=== PATIENT | male | born 1985 | race Caucasian/White ===

== ENCOUNTER 2023-10-17 09:49 | Emergency (ER) | payer OTHER, SELFPAY ==
[2023-10-17 09:53] VITALS: BP 149/79; PULSE 73; RESP 18; TEMP 36.6; O2SAT 98; BMI 27.3
--- OUTSIDE RECORDS SUMMARY | 2023-10-17 11:02 | XMS_ITS | Clinical Summary ---
Author Organization [facility] Address [address] [place] [address] Care Team Providers Care Blender/Braze Applicator Name Role Phone Nestor Duenas MD Primary Care Provider +1- [phone] Source Comments You are receiving this document as you are listed as the primary care provider,follow-up provider, or the patient has been referred to you for consultation.This is in compliance with the Medicare and[facility],which states Providers who transition their patient to another setting of careor provider of care or refers their patient to another provider of care shouldprovide summary care record for each transition of care or referral. [email or web address] Allergies No known active allergies Medications Medication Sig Dispensed Refills Start Date End Date Status amphetamine-dextroam phetamine XR (ADDERALL XR) 20 MG 24 hour release capsule Take 1 Capsule (20 mg) by mouth two times a day. 60 Capsule 08/09/2021 Active amphetamine-dextroam phetamine XR (ADDERALL XR) 20 MG 24 hour release capsule Take 1 Capsule (20 mg) by mouth two times a day. 60 Capsule 09/09/2021 Active amphetamine-dextroam phetamine XR (ADDERALL XR) 20 MG 24 hour release capsule Take 1 Capsule (20 mg) by mouth two times a day. 60 Capsule 10/10/2021 Active Active Problems Problem Noted Date Diagnosed Date Tobacco abuse 10/01/2015 Controlled substance agreement signed 04/13/2015 Overview: Diagnosis: ADHD Medication: Adderall XR 20mg bid Controlled Substance Agreement reviewed and signed: yes Date agreement signed: 04/13/2015 Refill plan: 3 rx's q 3 mo and f/u due q 6 mo Clinician: Nestor Duenas MD Anxiety 08/19/2014 Attention deficit hyperactiv ity disorder (ADHD), predominantly inattentive type 08/19/2014 Overview: seen last 10/01/15- 3 rx's for Adderall XR 20 mg bid #60 given- f/u due 04/02/16 Obesity 05/29/2013 Immunizations Name Administration Dates Next Due Influenza IIV4 (Quadrivalent ) 0.5mL (48293) 05/07/2019,04/10/2017,04/11/2016, 015,05/29/2013 PPSV23 (Pneumovax) 04/10/2017 TDAP (ADACEL) 11/24/2010 Tdap 12/04/2014 Family History Medical History Relation Name Comments Coronary Artery Disease Father High Cholesterol Father Hypertension Father Cancer, Thyroid Mother Diabetes Paternal Grandfather Diabetes Paternal Grandmother Stroke Negative Family History Relation Name Status Comments Father Mother Paternal Grandfather Paternal Grandmother Social History Tobacco Use Types Packs/Day Years Used Date Smoking Tobacco: Every Day Cigarettes 0.5 10 Smokeless Tobacco: Never Alcohol Use Standard Drinks/Week Comments Yes 0 (1 standard drink = 0.6 oz pur e alcohol) Occasional PHQ-2 Answer Date Recorded PHQ-2 Score 0 01/19/2021 Sex and Gender Information Value Date Recorded Sex Assigned at Not on file Gender Identity Not on file Sexual Orientation Not on file Last Filed Vital Signs Vital Sign Reading Time Taken Comments Blood Pressure 141/87 06/08/2021 12:05 PM CDT Pulse 86 06/08/2021 12:05 PM CDT Temperature 37.2 ??C (99 ??F) 09/21/2013 3:11 PM CDT Respiratory Rate 20 09/21/2013 3:11 PM CDT Oxygen Saturation 99% 03/01/2010 1:52 PM CLINICAL LAW PROFESSOR Inhaled Oxygen Concentration - - Weight 88.5 kg (195 lb) 06/08/2021 11:54 AM CDT Height 180.3 cm (5' 11) 06/08/2021 11:54 AM CDT Body Mass Index 27.2 06/08/2021 11:54 AM CDT Plan of Treatment Health Maintenance Due Date Last Done Comments Hep C Screening (Preventive Services) 1987 HIV Screening (Preventive Services) 2003 HepB (1) 07/01/2006 Pneumococcal (2 - PCV) 04/10/2018 04/10/2017 Cholesterol 07/01/2022 05/29/2013 COVID-19 Vaccine (1 - 2022-24 season) 2022 Adult Preventive Visit 06/09/2023 06/08/2021 (Comple louise) Influenza (#1) 2023 05/07/2019, 03/26, 04/11/2016, Additional history exists DTaP/Tdap/Td (3 - Tdap) 12/04/2024 12/04/2014, 11/24 Zoster/Shingles (1 of 2) 07/01/2037 HPV Vaccine Aged Out No longer eligi ble based on patient's age to complete this topic HepA Aged Out No longer eligi ble based on patient's age to complete this topic Hib Aged Out No longer eligi ble based on patient's age to complete this topic IPV (Polio) Aged Out No longer eligi ble based on patient's age to complete this topic MCV4 Aged Out No longer eligi ble based on patient's age to complete this topic Procedures Procedure Name Priority Date/Time Associated Diagnosis Comments LIPID PANEL & DIRECT LDL (IF NEEDED) Routine 05/29/2013 10:07 AM CLINICAL LAW PROFESSOR Screening cholesterol level from Last 3 Months or Most Recently Relevant to Health Maintenance Results * (ABNORMAL) Lipid Panel and Direct LDL(If Needed) (05/29/2013 10:07 AM CLINICAL LAW PROFESSOR) Cholesterol 203(H) 0 - 200 mg/dL HP CONVERSION Triglycerides 254(H) 0 - 149 mg/dL HP CONVERSION HDL Cholesterol 31(L) >39 mg/dL HP CONVERSION Cholesterol/HDL Ratio Screen 6.5 HP CONVERSION LDL Calculated 121 19 - 130 mg/dL HP CONVERSION Hours Fasting 12.0 HP CONVERSION 05/29/2013 10:0 7 AM CLINICAL LAW PROFESSOR 05/29/2013 10:07 AM CLINICAL LAW PROFESSOR Narrative HP CONVERSION - 05/29/2013 10:39 AM CLINICAL LAW PROFESSOR Performed at [facility], [address] [place] [address] Nelly Gillespie PA-C LAB_1 HP CONVERSION from Last 3 Months or Most Recently Relevant to Health Maintenance Care Teams Blender/Braze Applicator Relationship Specialty Start Date End Date Nestor Duenas MD [address] [place] [address] PCP - General 08/27/14
--- NOTE | 2023-10-17 11:07 | ED_ITS ---
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 No loss of consciousness, denies any ocular injuries or complaints. Tetanus is up-to-date. Laceration is across the left upper cheek. Related Data Previous Rx's ?Medication ?Instructions ?Recorded dextroamphetamine-amphetamine ER 20 mg PO BID #60 caps 04/24/22 20 mg 24hr capsule,extend release (Adderall XR) dextroamphetamine-amphetamine ER 20 mg (2 x 10 mg) PO BID #120 caps 07/11/23 10 mg 24hr capsule,extend release (Adderall XR) dextroamphetamine-amphetamine ER 20 mg PO BID #60 caps 10/08/23 20 mg 24hr capsule,extend release (Adderall XR) Allergies Allergy/AdvReac Type Severity Reaction Status Date / Time No Known Allergies Allergy Unknown Verified 10/09/23 13:28 [facility] Medical History (Updated 10/17/23 @ 11:04 by Rhonda Chen MD) Olecranon bursitis ?M70.20 - Olecranon bursitis, unspecified elbow (ICD-10) Elevated blood pressure reading without diagnosis of hypertension ?R03.0 - Elevated blood-pressure reading, without diagnosis of hypertension (ICD-10) Cellulitis ?L03.90 - Cellulitis, unspecified (ICD-10) ADD (attention deficit disorder) ?F98.8 - Other specified behavioral and emotional disorders with onset usually occurring in childhood and adolescence (ICD-10) Surgical History (Updated 11/23/21 @ 08:46 by Sade Glass) Hx of vasectomy (07/04/21) ?Z98.52 - Vasectomy status (ICD-10) Social History Smoking Status: Current every day smoker Do you use any of these nicotine containing products: None How often do you have a drink containing alcohol: never How often do you have six or more drinks on one occasion: Never AUDIT-C Alcohol total score: 0 Non-prescribed substance use: denies use Little interest or pleasure in doing things: not at all Feeling down, depressed, or hopeless: not at all Exam Narrative: Exam Narrative: Vital signs reviewed In general, alert, well-appearing man. Head: Normocephalic. Eyes: Pupils are equal and reactive. Extraocular movements are full. No nystagmus, no diplopia. ENT: There is a 2 in laceration across the left cheek under the left eye. This is somewhat Y shaped. Bleeding is controlled. He has intact sensation throughout the cheek although he noted some paresthesias under the eye and to a lesser extent underneath the laceration. Lid is normal. No facial bony tenderness or deformity. Const: Vital Signs, click to edit/add: Vital Signs - 24 hr 10/17/23 09:53 Temperature 97.9 F Pulse Rate [Right Pulse Oximeter] 73 Respiratory Rate 18 Blood Pressure [Ri ght Upper Arm] 149/79 H Pulse Oximetry 98 Oxygen Delivery Me thod Room Air Documenting provider has reviewed patient's vital signs: yes Course Course ED Course: Procedure note: The wound was anesthetized using lidocaine with epinephrine, cleaned and explored. No evidence of foreign body or obvious injury to deeper structures although the laceration overlies the region of the infraorbital nerve. At this time he does not have any dense sensory loss. I used [address] 3 deep simple interrupted sutures to bring the edges together and decrease tension across the wound. I then placed a total of 10 simple interrupted superficial sutures using 6 0 nylon. He tolerated this well, no immediate complication. Recommend routine wound care, suture removal next week, he has an appointment 1 week from today which I think is okay, but stressed that he should not wait any longer than 1 week for suture removal. Return at any time for signs of infection. Recommended that he keep an ointment such as Vaseline or Aquaphor on this as it heals, discussed sunscreen for the next 6 months to help with scar appearance. Vital Signs Vital signs: Initial Vital Signs Temperature 97.9 F 10/17/23 09:53 Temperature Source Temporal Artery Scan 10/17/23 09:53 Pulse Rate 73 10/17/23 09:53 Pulse Rhythm Regular 10/17/23 09:53 Pulse Strength 3+ Normal 10/17/23 09:53 Respiratory Rate 18 10/17/23 09:53 Blood Pressure 149/79 H 10/17/23 09:53 Blood Pressure Mean 102 10/17/23 09:53 Blood Pressure Position Sitting 10/17/23 09:53 Pulse Oximetry 98 10/17/23 09:53 Oxygen Delivery Method Room Air 10/17/23 09:53 Vital Signs Temperature 97.9 F 10/17/23 09:53 Pulse Rate 73 10/17/23 09:53 Respiratory Rate 18 10/17/23 09:53 Blood Pressure 149/79 H 10/17/23 09:53 Pulse Oximetry 98 10/17/23 09:53 Oxygen Delivery Method Room Air 10/17/23 09:53 Temperature 97.9 F 10/17/23 09:53 Pulse Rate 73 10/17/23 09:53 Respiratory Rate 18 10/17/23 09:53 Blood Pressure 149/79 H 10/17/23 09:53 Pulse Oximetry 98 10/17/23 09:53 Oxygen Delivery Method Room Air 10/17/23 09:53 Medications Administered Medications: Discontinued Medications Generic Name Dose Route Start Last Admin Trade Name Shubham PRN Reason Stop Dose Admin Lidocaine/Epinephrine 5 ml 10/17/23 10:20 10/17/23 10:23 Lidocaine 1%-Epi 1:100,000 10 Ml INFILTRATI 10/17/23 10:21 5 ml ONCE ONE Administration Discharge Plan Discharge Clinical Impression: Facial laceration Patient Disposition: Home, Self-Care Condition: Improved Instructions: Laceration (DC) Additional Instructions: Keep an ointment such as Aquaphor or Vaseline on the wound over the next week while it heals. This will help with healing and make suture removal easier. If at any time you develop symptoms of infections such as increasing pain, redness, swelling or drainage, you should be seen again. Sutures should be taken out your visit next week. Do not wait any longer than 1 week as this can lead to scarring from the stitches themselves. Okay to bathe or shower, please avoid swimming for 72 hours. Prescriptions: No Action dextroamphetamine-amphetamine [Adderall XR] 20 mg capsule,extended release 24hr 20 mg PO BID Qty: 60 0RF dextroamphetamine-amphetamine [Adderall XR] 10 mg capsule,extended release 2 4hr 20 mg PO BID Qty: 120 0RF dextroamphetamine-amphetamine [Adderall XR] 20 mg capsule,extended release 24hr 20 mg PO BID Qty: 60 0RF Rx Instructions: Follow-up due Oct 2023. Follow Up/Referrals: James Polk MD [Primary Care Provider] - Stand Alone Forms: [employer] Info Instructions
== END 2023-10-17 11:12 | disposition home or self-care (01) ==
PROVIDERS: Emergency Provider Emergency Medicine; PCP Family Medicine
DX: S01.412A Laceration without foreign body of left cheek and temporomandibular area, initial encounter (principal); W45.8XXA Other foreign body or object entering through skin, initial encounter; Y93.89 Activity, other specified; Y92.79 Other farm location as the place of occurrence of the external cause
CPT/HCPCS: 12021; 12051; 99283; 99284

== ENCOUNTER 2023-11-04 09:29 | Emergency (ER) | payer OTHER, SELFPAY ==
[2023-11-04 09:36] VITALS: BP 124/80; PULSE 102; RESP 16; TEMP 36.8; O2SAT 98; BMI 27.3
--- NOTE | 2023-11-04 09:51 | ED.LOWEXIN ---
HPI - Extremity Injury (Lower) General Chief Complaint: Extremity Pain/Injury, Lower Stated Complaint: R knee possible infection Time Seen by Provider: 11/04/23 09:43 History of Present Illness HPI Narrative: Patient is a 38-year-old gentleman who I know from my primary care clinic. I did treat him for olecranon bursitis which was infected approximately a month ago and he has had full resolution. Patient presents with painful red is swelling of the right knee which is been present for 24 hours. Patient has no fever no signs of sepsis. He has had no chest pain no shortness a breath orthopnea no PND. No calf pain. The pain is in the superior aspect of the knee and is accompanied by induration and swelling. He has had no recent injuries. Related Data Previous Rx's ?Medication ?Instructions ?Recorded dextroamphetamine-amphetamine ER 20 mg PO BID #60 caps 04/24/22 20 mg 24hr capsule,extend release (Adderall XR) dextroamphetamine-amphetamine ER 20 mg (2 x 10 mg) PO BID #120 caps 07/11/23 10 mg 24hr capsule,extend release (Adderall XR) dextroamphetamine-amphetamine ER 20 mg PO BID #60 caps 10/08/23 20 mg 24hr capsule,extend release (Adderall XR) Allergies Allergy/AdvReac Type Severity Reaction Status Date / Time No Known Allergies Allergy Unknown Verified 10/24/23 09:50 Review of Systems Status of ROS: Reports: 10 or more systems reviewed and unremarkable except as noted in History and below [facility] Medical History Olecranon bursitis ?M70.20 - Olecranon bursitis, unspecified elbow (ICD-10) Elevated blood pressure reading without diagnosis of hypertension ?R03.0 - Elevated blood-pressure reading, without diagnosis of hypertension (ICD-10) Cellulitis ?L03.90 - Cellulitis, unspecified (ICD-10) ADD (attention deficit disorder) ?F98.8 - Other specified behavioral and emotional disorders with onset usually occurring in childhood and adolescence (ICD-10) Surgical History Hx of vasectomy (07/04/21) ?Z98.52 - Vasectomy status (ICD-10) Social History Smoking Status: Current every day smoker Do you use any of these nicotine containing products: None How often do you have a drink containing alcohol: never How often do you have six or more drinks on one occasion: Never AUDIT-C Alcohol total score: 0 Non-prescribed substance use: denies use Little interest or pleasure in doing things: not at all Feeling down, depressed, or hopeless: not at all Exam Narrative: Exam Narrative: EXAM GENERAL: Patient appears comfortable and well. EYES: No scleral icterus. LYMPH: No supraclavicular or cervical lymphadenopathy. SKIN: Visible skin seen during exam normal or with benign process only. EXT: Evidence of of bursitis of the right knee noted with induration and swelling impaired range of motion. HEART: Regular rate and rhythm with no murmurs, rubs, or gallops. LUNGS: Clear to auscultation bilaterally with no crackles or wheezes. ABD: Soft, non tender, non distended. PSYCH: Good eye contact, speech is not pressured. Const: Vital Signs, click to edit/add: Vital Signs - 24 hr 11/04/23 09:36 Temperature 98.2 F Pulse Rate [Pulse Oximeter] 102 H Respiratory Rate 16 Blood Pressure [Ri ght Upper Arm] 124/80 Pulse Oximetry 98 Oxygen Delivery Me thod Room Air Course Course ED Course: Patient seen and examined. Vital Signs Vital signs: Initial Vital Signs Temperature 98.2 F 11/04/23 09:36 Temperature Source Temporal Artery Scan 11/04/23 09:36 Pulse Rate 102 H 11/04/23 09:36 Respiratory Rate 16 11/04/23 09:36 Blood Pressure 124/80 11/04/23 09:36 Blood Pressure Mean 94 11/04/23 09:36 Pulse Oximetry 98 11/04/23 09:36 Oxygen Delivery Method Room Air 11/04/23 09:36 Vital Signs Temperature 98.2 F 11/04/23 09:36 Pulse Rate 102 H 11/04/23 09:36 Respiratory Rate 16 11/04/23 09:36 Blood Pressure 124/80 11/04/23 09:36 Pulse Oximetry 98 11/04/23 09:36 Oxygen Delivery Method Room Air 11/04/23 09:36 Temperature 98.2 F 11/04/23 09:36 Pulse Rate 102 H 11/04/23 09:36 Respiratory Rate 16 11/04/23 09:36 Blood Pressure 124/80 11/04/23 09:36 Pulse Oximetry 98 11/04/23 09:36 Oxygen Delivery Method Room Air 11/04/23 09:36 MDM - Extremity Injury (Lower) MDM Narrative Medical decision making narrative: Patient is seen with bursitis of the right knee. I am concerned that he may have infection. I am not confident after aggressive palpation of the knee that I would be able to get any fluid. This would be preferable for culture reasons. I do not believe x-rays helpful. I did give him a g Rocephin. I also be starting him on Keflex and I did give them my cell phone number for them to call tomorrow. I do see him back in the office in approximately 3 days as well. He changes they will call me right away otherwise will plan to see them back in close follow-up. Differential diagnosis includes but not limited to septic bursitis septic joint knee injury meniscal tear autoimmune bursitis. Discharge Plan Discharge Clinical Impression: Bursitis Patient Disposition: Home, Self-Care Condition: Stable Additional Instructions: Keflex as directed Tylenol Motrin Ice Contact Dr. Russell on cell phone if symptoms change. Plan to keep follow-up with Dr. Russell is in 3 days. Activity Level: No Restrictions Discharge Diet: Regular Prescriptions: No Action dextroamphetamine-amphetamine [Adderall XR] 20 mg capsule,extended release 24hr 20 mg PO BID Qty: 60 0RF dextroamphetamine-amphetamine [Adderall XR] 10 mg capsule,extended release 24hr 20 mg PO BID Qty: 120 0RF dextroamphetamine-amphetamine [Adderall XR] 20 mg capsule,extended release 24hr 20 mg PO BID Qty: 60 0RF Rx Instructions: Follow-up due Oct 2023. Follow Up/Referrals: James Polk MD [Primary Care Provider] - Stand Alone Forms: [employer] Info Instructions
--- OUTSIDE RECORDS SUMMARY | 2023-11-04 10:01 | XMS_ITS | Clinical Summary ---
Author Organization [facility] Address [address] [place] [address] Care Team Providers Care Surgical Oncologist Name Role Phone Nestor Duenas MD Primary Care Provider [phone]- [phone] Source Comments You are receiving this document as you are listed as the primary care provider,follow-up provider, or the patient has been referred to you for consultation.This is in compliance with the Medicare and[facility],which states Providers who transition their patient to another setting of careor provider of care or refers their patient to another provider of care shouldprovide summary care record for each transition of care or referral. [employer] Allergies No known active allergies Medications Medication [...] Next Due Influenza IIV4 (Quadrivalent ) 0.5mL (83959) 05/07/2019,04/10/2017,04/11/2016, 015,05/29/2013 PPSV23 (Pneumovax) 04/10/2017 TDAP (ADACEL) [...] CDT Oxygen Saturation 99% 03/01/2010 1:52 PM MED SPA MANAGER Inhaled Oxygen Concentration - - Weight 88.5 [...] LDL (IF NEEDED) Routine 05/29/2013 10:07 AM MED SPA MANAGER Screening cholesterol level from Last 3 Months or Most Recently Relevant to Health Maintenance Results * (ABNORMAL) Lipid Panel and Direct LDL(If Needed) (05/29/2013 10:07 AM MED SPA MANAGER) Cholesterol 203(H) 0 - 200 mg/dL HP CONVERSION Triglycerides 254(H) 0 - 149 mg/dL HP CONVERSION HDL Cholesterol 31(L) >39 mg/dL HP CONVERSION Cholesterol/HDL Ratio Screen 6.5 HP CONVERSION LDL Calculated 121 19 - 130 mg/dL HP CONVERSION Hours Fasting 12.0 HP CONVERSION 05/29/2013 10:0 7 AM MED SPA MANAGER 05/29/2013 10:07 AM MED SPA MANAGER Narrative HP CONVERSION - 05/29/2013 10:39 AM MED SPA MANAGER Performed at [facility] [address] [place] [address] Nelly Gillespie PA-C LAB_1 HP CONVERSION from Last 3 Months or Most Recently Relevant to Health Maintenance Care Teams Surgical Oncologist Relationship Specialty Start Date End Date Nestor Duenas MD [address] [place] [address] PCP - General 08/27/14
[2023-11-04] MEDS: LIDOCAINE 1% 5 ml (pf) 5 ML VIAL 2.1 ML IM (10:03)
[2023-11-04] MEDS: cefTRIAXone 1 GM VIAL IM (10:03)
== END 2023-11-04 10:09 | disposition home or self-care (01) ==
LOC: ED 10:00
PROVIDERS: Emergency Provider Internal Medicine; PCP Internal Medicine
DX: M70.51 Other bursitis of knee, right knee (principal)
CPT/HCPCS: 96372; 99283; J0696

== ENCOUNTER 2023-11-05 11:27 | Observation (INO) | payer OTHER, SELFPAY ==
[2023-11-05] VITALS (7 sets, daily range): BP systolic 90–132; BP diastolic 63–92; PULSE 76–90; RESP 16–18; TEMP 36.9–38.1; O2SAT 95–98; BMI 27.3; BMI 25.8
--- OUTSIDE RECORDS SUMMARY | 2023-11-05 12:04 | XMS_ITS | Clinical Summary ---
Author Organization [facility] Address [address] [place] [address] Care Team Providers Care Rehabilitation Team Lead Name Role Phone Nestor Duenas MD Primary Care Provider +1- [phone] Source Comments You are receiving this document as you are listed as the primary care provider,follow-up provider, or the patient has been referred to you for consultation.This is in compliance with the Medicare and[facility] In[facility]ive Program,which states Providers who transition their patient to another setting of careor provider of care or refers their patient to another provider of care shouldprovide summary care record for each transition of care or referral. [employer] Allergies No known active allergies Medications Medication [...] Next Due Influenza IIV4 (Quadrivalent ) 0.5mL (09432) 05/07/2019,04/10/2017,04/11/2016, 015,05/29/2013 PPSV23 (Pneumovax) 04/10/2017 TDAP (ADACEL) [...] CDT Oxygen Saturation 99% 03/01/2010 1:52 PM AGRICULTURAL COMMODITIES INSPECTOR Inhaled Oxygen Concentration - - Weight 88.5 [...] LDL (IF NEEDED) Routine 05/29/2013 10:07 AM AGRICULTURAL COMMODITIES INSPECTOR Screening cholesterol level from Last 3 Months or Most Recently Relevant to Health Maintenance Results * (ABNORMAL) Lipid Panel and Direct LDL(If Needed) (05/29/2013 10:07 AM AGRICULTURAL COMMODITIES INSPECTOR) Cholesterol 203(H) 0 - 200 mg/dL HP CONVERSION Triglycerides 254(H) 0 - 149 mg/dL HP CONVERSION HDL Cholesterol 31(L) >39 mg/dL HP CONVERSION Cholesterol/HDL Ratio Screen 6.5 HP CONVERSION LDL Calculated 121 19 - 130 mg/dL HP CONVERSION Hours Fasting 12.0 HP CONVERSION 05/29/2013 10:0 7 AM AGRICULTURAL COMMODITIES INSPECTOR 05/29/2013 10:07 AM AGRICULTURAL COMMODITIES INSPECTOR Narrative HP CONVERSION - 05/29/2013 10:39 AM AGRICULTURAL COMMODITIES INSPECTOR Performed at [facility], [address] [place] [address] Nelly Gillespie PA-C LAB_1 HP CONVERSION from Last 3 Months or Most Recently Relevant to Health Maintenance Care Teams Rehabilitation Team Lead Relationship Specialty Start Date End Date Nestor Duenas MD [address] [place] [address] PCP - General 08/27/14
[2023-11-05 12:23] LABS: Basophils Percent Auto 0.1 % (0.0-3.0); Eosinophils Percent Auto 0.2 % (0.0-7.0); Hematocrit 44.6 % (37.0-53.0); Hemoglobin* 14.9 gm/dL (13.5-17.5); Immature Granulocytes Pct Auto 0.2 %; Lymphocytes Percent Auto 12.9 % (20-44); Mean Corpuscular HGB Conc 33 gm/dL (32-36); Mean Corpuscular Hemoglobin 29 pg (26-34); Mean Corpuscular Volume 87 fL (80-100); Monocytes Percent Auto 6.3 % (0.0-11.0); Neutrophils Percent Auto 80.3 % (42.0-72.0); Platelet Count* 213 K/uL (140-440); RDW Coefficient of Variation % 13.2 % (11.5-15.5); Red Blood Count 5.14 m/uL (4.30-5.90); White Blood Count* 16.53 K/uL (4.50-11.00)
[2023-11-05 12:30] LABS: Slide Review Reflex No
--- NOTE | 2023-11-05 12:35 | ED.GENADULT ---
HPI - General Adult General Chief complaint: Extremity Pain/Injury, Lower Stated complaint: knee pain Time Seen by Provider: 11/05/23 11:42 Source: patient Mode of arrival: ambulatory Limitations: no limitations History of Present Illness HPI narrative: Patient is a 38-year-old male presenting for right knee pain. He has been having his symptoms this past 2 days. Initial came to the emergency department yesterday was seen at that time for concern of substernal showing versus septic bursitis. The provider did not was not drainable collection has the knee sore given like Rocephin insert MR Keflex. Patient the home was given the providers 2. Year old lab this morning stating that symptoms are improving so was told to come to the emergency department for re-evaluation this is. They noticed the erythema around the knee is getting worse. He is able to walk but is painful. Cannot move the knee but she should is painful with movement. Does states the pain is all around the knee and cannot count pinpoint spot where this the worst. He has had previous cellulitis to his knee. Was treated for olecranon bursitis 1 month prior with resolution. Was diaphoretic last night but denies any fevers. Denies chest pain, shortness breath, weakness, numbness. No other concerns noted at this time. Related Data Previous Rx's ?Medication ?Instructions ?Recorded dextroamphetamine-amphetamine ER 20 mg PO BID #60 caps 04/24/22 20 mg 24hr capsule,extend release (Adderall XR) dextroamphetamine-amphetamine ER 20 mg (2 x 10 mg) PO BID #120 caps 07/11/23 10 mg 24hr capsule,extend release (Adderall XR) dextroamphetamine-amphetamine ER 20 mg PO BID #60 caps 10/08/23 20 mg 24hr capsule,extend release (Adderall XR) Allergies Allergy/AdvReac Type Severity Reaction Status Date / Time No Known Allergies Allergy Unknown Verified 11/05/23 11:49 [facility] Medical History Olecranon bursitis ?M70.20 - Olecranon bursitis, unspecified elbow (ICD-10) Elevated blood pressure reading without diagnosis of hypertension ?R03.0 - Elevated blood-pressure reading, without diagnosis of hypertension (ICD-10) Cellulitis ?L03.90 - Cellulitis, unspecified (ICD-10) ADD (attention deficit disorder) ?F98.8 - Other specified behavioral and emotional disorders with onset usually occurring in childhood and adolescence (ICD-10) Surgical History Hx of vasectomy (07/04/21) ?Z98.52 - Vasectomy status (ICD-10) Social History Smoking Status: Current every day smoker Do you use any of these nicotine containing products: None How often do you have a drink containing alcohol: never How often do you have six or more drinks on one occasion: Never AUDIT-C Alcohol total score: 0 Non-prescribed substance use: denies use Little interest or pleasure in doing things: not at all Feeling down, depressed, or hopeless: not at all Exam Narrative: Exam Narrative: Const: Well-nourished, Well-developed, in mild distress Eyes: PERRL, no conjunctival injection, and symmetrical lids HENT: Atraumatic external nose and ears. Moist mucous membranes. Neck: Symmetric, trachea midline, No thyromegaly. CVS: RRR, No murmurs or gallops. Peripheral pulses 2+ and equal in all extremities RESP: Unlabored respiratory effort. Clear to auscultation bilaterally. GI: Nontender/Nondistended, No rebound or guarding. MSK: Erythema and swelling noted to right hernia bowel swelling noted superior and around the patella. Tenderness noted throughout the knee though. Painful passive and active range of motion. Skin: Warm, Dry. No rashes or lesions. Neuro: Normal Muscle tone, No focal neurological deficits. Psych: Awake, Alert, & Oriented x3. Appropriate mood and affect. Const: Vital Signs, click to edit/add: Vital Signs - 24 hr 11/05/23 11:37 Temperature 98.4 F Pulse Rate [Pulse Oximeter] 90 Respiratory Rate 16 Blood Pressure [Ri ght Upper Arm] 90/64 Pulse Oximetry 98 Oxygen Delivery Me thod Room Air Course Vital Signs Vital signs: Initial Vital Signs Temperature 98.4 F 11/05/23 11:37 Temperature Source Temporal Artery Scan 11/05/23 11:37 Pulse Rate 90 11/05/23 11:37 Respiratory Rate 16 11/05/23 11:37 Blood Pressure 90/64 11/05/23 11:37 Blood Pressure Mean 72 11/05/23 11:37 Blood Pressure Position Sitting 11/05/23 11:37 Pulse Oximetry 98 11/05/23 11:37 Oxygen Delivery Method Room Air 11/05/23 11:37 Vital Signs Temperature 98.4 F 11/05/23 11:37 Pulse Rate 90 11/05/23 11:37 Respiratory Rate 16 11/05/23 11:37 Blood Pressure 90/64 11/05/23 11:37 Pulse Oximetry 98 11/05/23 11:37 Oxygen Delivery Method Room Air 11/05/23 11:37 Temperature 98.4 F 11/05/23 11:37 Pulse Rate 90 11/05/23 11:37 Respiratory Rate 16 11/05/23 11:37 Blood Pressure 90/64 11/05/23 11:37 Pulse Oximetry 98 11/05/23 11:37 Oxygen Delivery Method Room Air 11/05/23 11:37 Medical Decision Making MDM Narrative Medical decision making narrative: Patient is a 38-year-old male presenting for right knee pain. This concern for septic arthritis at this time. Order CBC, BMP, ESR, CRP. With the erythema and no obvious showing fluid collection on my exam concerned this could be a cellulitis overlying in it hesitant to do an arthrocentesis without evaluation from Orthopedics. Orthopedics PA is coming to evaluate. White count is elevated at 16.5 and neutrophil predominant. ESR is 28 with a CRP of 25. Also added a lactate which was within normal limits of 1.7. Orthopedics came and evaluated him at this time I think is most likely cellulitis but do think is reasonable acute them admitted for IV antibiotics and re-evaluated in the morning. I believe it is best to admit this patient also concerned he has failed outpatient management and just overall is not doing well. He has had multiple infections over the past few months which seems abnormal for a person of his age and health. Will order vancomycin as Keflex outpatient dose of Rocephin yesterday has not improved symptoms. I did explain to him he will be in observation patient is eyes and will further and the financial burden that includes. He understands and agrees for observation. Lab Data Labs: Lab Results 08/12/24 08/12/24 Range/Units 12:14 13:40 WBC 16.53 H (4.50-11.00) K/uL RBC 5.14 (4.30-5.90) m/uL Hgb 14.9 (13.5-17.5) gm/dL Hct 44.6 (37.0-53.0) % MCV 87 (80-100) fL MCH 29 (26-34) pg MCHC 33 (32-36) gm/dL RDW Coeff of Isra 13.2 (11.5-15.5) % Plt Count 213 (140-440) K/uL Neut % (Auto) 80.3 H (42.0-72.0) % Lymph % (Auto) 12.9 L (20-44) % [place] % (Auto) 6.3 (0.0-11.0) % Eos % (Auto) 0.2 (0.0-7.0) % Baso % (Auto) 0.1 (0.0-3.0) % Neut # (Auto) 13.30 H (1.7-7.0) K/uL Lymph # (Auto) 2.10 (0.90-2.90) K/uL [place] # (Auto) 1.00 H (0.00-0.90) K/UL Eos # (Auto) 0.00 (0.00-0.50) K/uL Baso # (Auto) 0.00 (0.00-0.30) K/uL Abs Immat Gran (auto) 0.00 (0.00-0.30) K/uL Imm/Tot Granulo (auto) 0.2 % ESR 28 H (2-15) mm/hr Sodium 136 (135-149) mmol/L Potassium 4.8 (3.6-5.1) mmol/L Chloride 103 (96-114) mmol/L Carbon Dioxide 27 (20-32) mmol/L Anion Gap 6 L (7-15) mEq/L BUN 14 (5-24) mg/dL Creatinine 0.9 (0.5-1.5) mg/dL Estimated Creat Clear 117.16 Estimated GFR 114 ml/min Glucose 60 (60-115) mg/dL Lactate 1.7 (0.5-1.9) mmol/L Calcium 9.0 (8.4-10.6) mg/dL C-Reactive Protein 25.0 H (0.5-1.0) mg/dL Discharge Plan Discharge Clinical Impression: Cellulitis Qualifiers: Site of cellulitis: extremity Site of cellulitis of extremity: lower extremity Laterality: right Qualified Code(s): L03.115 - Cellulitis of right lower limb Patient Disposition: Admitted As Observation Condition: Stable
[2023-11-05 12:40] LABS: Chloride* 103 mmol/L (96-114)
[2023-11-05 12:41] LABS: Potassium* 4.8 mmol/L (3.6-5.1); Sodium* 136 mmol/L (135-149)
[2023-11-05 12:43] LABS: Anion Gap 6 mEq/L (7-15); Carbon Dioxide* 27 mmol/L (20-32); Creatinine* 0.9 mg/dL (0.5-1.5); Est. Creatinine Clearance* 117.16; Estimated Glomerular Filt Rate 114 ml/min
[2023-11-05 12:44] LABS: Blood Urea Nitrogen* 14 mg/dL (5-24); Glucose* 60 mg/dL (60-115)
[2023-11-05 13:16] LABS: Erythrocyte SedimentationRate* 28 mm/hr (2-15)
--- NOTE | 2023-11-05 13:26 | P.ORCN_ITS ---
History of Present Illness HPI Time Seen by Provider: 13:27 Date Seen: 11/05/23 Consult date: 11/05/23 Requesting physician: Alejandro Daly Chief complaint: knee pain Narrative: Moreno is a very pleasant 38-year-old young man, in the emergency room currently, with his , with right knee pain, redness, warmth, swelling that has been worsening since Sunday. Sunday, 2 days ago he was walking around the [facility] and he began to have right knee discomfort. Yesterday he was seen in the emergency room for the same, the reddened area was marked with a sharpie, he was given 1 g of Rocephin and started on Keflex. Dr. Russell spoke with him today, his redness and symptoms have worsened and he was asked to return to the emergency room. He had sweating last night but no fever. He feels tired which is not like him, has some nausea, and also describes hand numbness and tingling. He has had cellulitis previously on this leg in 2015. He also recently had olecranon bursitis couple weeks ago in September on the left elbow. He states the elbow bursa burst on its own, while he was sleeping and drained on his bed sheets. That healed uneventfully and he has a scab on the olecranon on. He recalls having cellulitis on his right elbow also 09/04/2021. He denies being immunocompromised, denies having diabetes, rheumatoid arthritis. Review of Systems Narrative: Patient denies vomiting, fever, chills, chest pain, shortness of breath. He does have some nausea. He denies having joint pain, right knee Const: Reports: fatigue and other (Sleepy, his states he has fallen asleep several times while in the ER) Endo: Reports: fatigue [facility]SH [facility] Medical History Olecranon bursitis ?M70.20 - Olecranon bursitis, unspecified elbow (ICD-10) Elevated blood pressure reading without diagnosis of hypertension ?R03.0 - Elevated blood-pressure reading, without diagnosis of hypertension (ICD-10) Cellulitis ?L03.90 - Cellulitis, unspecified (ICD-10) ADD (attention deficit disorder) ?F98.8 - Other specified behavioral and emotional disorders with onset usually occurring in childhood and adolescence (ICD-10) Surgical History Hx of vasectomy (07/04/21) ?Z98.52 - Vasectomy status (ICD-10) Social History Smoking Status: Current every day smoker Do you use any of these nicotine containing products: None How often do you have a drink containing alcohol: never How often do you have six or more drinks on one occasion: Never AUDIT-C Alcohol total score: 0 Non-prescribed substance use: denies use Little interest or pleasure in doing things: not at all Feeling down, depressed, or hopeless: not at all Meds Home Medications and Allergies Allergies Allergy/AdvReac Type Severity Reaction Status Date / Time No Known Allergies Allergy Unknown Verified 11/05/23 11:49 Ortho Exam Narrative Exam Narrative: Alert and oriented x3. Patient is in no acute distress. Converses without labored breathing. Hearing is grossly intact. Ambulates with a antalgic gait. Currently no fever. Examination of the right knee shows extensive erythema about the knee, distal thigh, most of lower leg to the ankle. This area is hot and tender. Gentle range of motion of the knee is without knee joint pain. No effusion is palpable. Mild amount of fluid in the infrapatellar bursa. Callused knee. Healing scabs/crusts anterior proximal tibial area. Sensation intact to light touch. There is a marker outlining the anterior knee area. The area of e rythema has greatly extended proximally and distally from this area. He can range the hip on the right without pain. He can range the ankle without pain. Calf is soft and nontender. Const Vital Signs, click to edit/add: Vital Signs - 24 hr 11/05/23 11:37 Temperature 98.4 F Pulse Rate [Pulse Oximeter] 90 Respiratory Rate 16 Blood Pressure [Right Upper Arm] 90/64 Pulse Oximetry 98 Oxygen Delivery Method Room Air Documenting provider has reviewed patient's vital signs: yes Results Labs Labs: Laboratory Results - last 48 hr 11/05/23 12:14 WBC 16.53 H RBC 5.14 Hgb 14.9 Hct 44.6 MCV 87 MCH 29 MCHC 33 RDW Coeff of Isra 13.2 Plt Count 213 Neut % (Auto) 80.3 H Lymph % (Auto) 12.9 L [place] % (Auto) 6.3 Eos % (Auto) 0.2 Baso % (Auto) 0.1 Neut # (Auto) 13.30 H Lymph # (Auto) 2.10 [place] # (Auto) 1.00 H Eos # (Auto) 0.00 Baso # (Auto) 0.00 Abs Immat Gran (auto) 0.00 Imm/Tot Granulo (auto) 0.2 ESR 28 H Sodium 136 Potassium 4.8 Chloride 103 Carbon Dioxide 27 Anion Gap 6 L BUN 14 Creatinine 0.9 Estimated Creat Clear 117.16 Estimated GFR 114 Glucose 60 Calcium 9.0 C-Reactive Protein 25.0 H Assessment and Plan Assessment and plan (1) Cellulitis of right lower extremity from knee to ankle: Problem comment: Onset of symptoms 11/03/2023 Status: Acute Assessment and Plan: Moreno has not responded to IV Rocephin or oral Keflex. His symptoms have greatly worsened in 24 hours. His white blood cell count is elevated at 16.53. Normal is 4.5-11. Sed rate is elevated at 28. He has nausea. He is fatigued/tired. He would benefit from inpatient IV antibiotics. This does not appear to be aseptic right knee joint for he has no effusion, no joint pain. This is discussed with Dr. Daly. He agrees. No surgery is indicated at this time. Orthopedics will follow p.r.n.. Note, dictation performed with voice recognition, and as a result, wrong word or sound like substitutions may have occurred. There may be areas in the script that have gone on detected. Please consider this when interpreting information found in the chart.
[2023-11-05 13:47] LABS: Lactate* 1.7 mmol/L (0.5-1.9)
[2023-11-05] MEDS: VANCOMYCIN 1.75 GM/350 ML 1.75 GM/350 ML PIGGYBACK IVPB (14:44)
[2023-11-05] MEDS: ACETAMINOPHEN 325 MG TABLET 650 MG PO (16:18)
[2023-11-05] MEDS: OXYCODONE 5 MG TABLET PO (16:18)
--- NOTE | 2023-11-05 16:49 | PM.IMHP1 ---
Hospitalist- H&P: HPI History of Present Illness Date Seen: 11/05/23 Chief complaint: knee pain Narrative: Moreno Werner is a 38 year old man presents to our emergency department after 2 days of increasing right knee pain and discomfort. Was seen yesterday morning the emergent department for the same and thought to possibly have a bursitis but nonetheless treated for possible cellulitis. Received 1 g of ceftriaxone intravenously and started on oral cephalexin. Was instructed that if his condition worsen that he is to return to the emergency department. Patient thus returned for reassessment today. Indicates that the knee pain has not improved, he has had episodes of sweating, not measuring his temperature however. Pain is all around the knee. No recent trauma or injury that he is aware of. 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 Review of Systems Status of ROS: Reports: 6 or more systems reviewed and unremarkable except as noted in History and below Narrative: Primary care physician is Dr. Lara. He is considering switching primary care physicians to Dr. Russell. Lives with and 3 children. 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 Denies upper or lower gastrointestinal tract symptoms, genitourinary tract symptoms, upper or lower respiratory tract symptoms, or any other localizing signs or symptoms. [facility] Medical History (Updated 11/05/23 @ 17:08 by Leighton Galaviz MD) Tobacco use disorder ?F17.200 - Nicotine dependence, unspecified, uncomplicated (ICD-10) Olecranon bursitis ?M70.20 - Olecranon bursitis, unspecified elbow (ICD-10) Elevated blood pressure reading without diagnosis of hypertension ?R03.0 - Elevated blood-pressure reading, without diagnosis of hypertension (ICD-10) Cellulitis ?L03.90 - Cellulitis, unspecified (ICD-10) ADD (attention deficit disorder) ?F98.8 - Other specified behavioral and emotional disorders with onset usually occurring in childhood and adolescence (ICD-10) Surgical History History of dental surgery ?Z92.89 - Personal history of other medical treatment (ICD-10) Hx of vasectomy (07/04/21) ?Z98.52 - Vasectomy status (ICD-10) Social History What is your current living situation?: I presently have a place to live Problems where you live: no known problems Problems where you live details: NA In the past 12 months, utilities in danger of being shut off: no In past 12 months, lack of transportation kept you from medical appts, meetings, work, or getting things needed for daily living: yes In the past 12 mos, have been you worried that your food would run out before you had money to buy more?: never true In the past 12 mos, the food you bought just didn't last and you didn't have money to buy more?: never true Highest level of school completed/degree received: high school graduate Smoking Status: Current every day smoker What tobacco products do you use: cigarettes Smoking packs per day: 1 Smoking cigarettes per day: 20.0 Years smoked: 15 Smoking pack-years: 15.00 Do you use any of these nicotine containing products: None How often do you have a drink containing alcohol: 2-4 times a month Alcohol type: beer How many standard drinks containing alcohol do you have on a typical day: 1 or 2 How often do you have six or more drinks on one occasion: Less than monthly AUDIT-C Alcohol total score: 3 Non-prescribed substance use: marijuana (any form) Caffeine: Yes How often does anyone, including family, friends and others, physically hurt you: unable to answer How often does anyone, including family, friends and others, insult or talk down to you: unable to answer How often does anyone, including family, friends and others, threaten you with harm: unable to answer How often does anyone, including family, friends and others, scream or curse at you: unable to answer Little interest or pleasure in doing things: not at all Feeling down, depressed, or hopeless: not at all service: No Meds Home Medications and Allergies Home Medication Comments: Adderall XR 20 mg twice daily Allergies Allergy/AdvReac Type Severity Reaction Status Date / Time No Known Allergies Allergy Unknown Verified 11/05/23 11:49 Exam Narrative: Exam Narrative: I examined him in the emergency department. He appears comfortable and in no acute distress when I see him. Vision and hearing are adequate. Alert and oriented x4. Friendly, articulate, cooperative. External auditory canals and tympanic membranes are normal. Midline nasal septum. Moist buccal mucosa. Neck is supple. Midline trachea. No head neck lymphadenopathy. Lungs are clear to auscultation without wheezing, rhonchi, or rales. No CVA tenderness. Heart tones with regular rhythm, normal S1-S2, without murmur, gallop, rub. PMI not laterally displaced. Abdomen with active bowel sounds, soft, nontender. No rebound or guarding. No focal motor neurologic deficits. Right knee is red, warm, swollen with redness extending from ankle all the way up the medial aspect of the right thigh. Extends well beyond aparicio that were made yesterday when he was assessed. Const: Vital Signs, click to edit/add: Vital Signs - 24 hr 11/05/23 11:37 11/05/23 15:09 11/05/23 16:18 Temperature 98.4 F 99.9 F H 99.9 F H Pulse Rate [Pulse Oximeter] 90 Pulse Rate [Right Pulse Oximeter] 86 Respiratory Rate 16 18 Blood Pressure [Le ft Arm] 130/92 H Blood Pressure [Ri ght Upper Arm] 90/64 Pulse Oximetry 98 Oxygen Delivery Me thod Room Air Hospitalist - H&P: Result Labs Labs: Short CBC 11/05/23 Range/Units 12:14 WBC 16.53 H (4.50-11.00) K/uL Hgb 14.9 (13.5-17.5) gm/dL Hct 44.6 (37.0-53.0) % Plt Count 213 (140-440) K/uL BMP 11/05/23 12:14 Sodium 136 Potassium 4.8 Chloride 103 Carbon Dioxide 27 BUN 14 Creatinine 0.9 Glucose 60 Calcium 9.0 Assessment and Plan Assessment and plan (1) Cellulitis of right lower extremity from knee to ankle: Problem comment: - Onset of symptoms 11/03/2023 - 11/04/2023: Ceftriaxone 1 g IV and started on cephalexin orally - 11/05/2023: Cellulitis extended well beyond the bounds of the markings from 11/04/2023. Orthopedic surgery consultation agreed most likely cellulitis not responding to IV and oral antibiotics. Recommended admission to the hospital, received 1 dose of vancomycin in the emergency department, started on cefazolin 2 g IV q.8. Status: Acute (2) Elevated blood pressure reading without diagnosis of hypertension: Problem comment: Numerous office visits. See scanned [facility] notes. Status: Acute (3) ADD (attention deficit disorder): Problem comment: - uses Adderall XR 20 mg p.o. b.i.d. with good results Status: Chronic (4) Tobacco use disorder: Problem comment: - roughly 1 pack per day. Status: Acute Plan 1. Reviewed impression and recommendations with patient and . 2. Answered their questions are satisfaction. 3. They are agreeable to above stated plans and recommendations. Total Time Spent Total Time Spent: 60 minutes
[2023-11-05] MEDS: CEFAZOLIN 2 GM in 0.9 % SODIUM CHLORIDE Mini-bag 100 ML IVPB (17:46)
[2023-11-05] MEDS: 0.9 % SODIUM CHLORIDE 1000 ml 1,000 ML 125 ML IV (17:46)
--- NOTE | 2023-11-05 18:41 | PC.NURSE ---
Nursing Care Hours: [id number] pt this shift arrived from ED on wheelchair. Independent ambulation into room. Limp to R leg d/t pain. VSS, temp slightly elevated. Pain rated 5-6/10 sitting and 9-10/10 when walking. Declined anything for pain. States ice feels too cold. Eventually, pt became chilled, shaking, and crying. Temp was 99.7. Warm blankets and cool wash cloth provided. Tylenol and oxycodone given, effective. Reassessed pain at /10.. Discussed with pt some signs and symptoms of severe pain such as trembling and shaking and feeling flushed. Recommended alternating Tylenol and ibuprofen Q3H and using narcotic pain meds as needed. Elevated leg on two pillows. ABX infused, normal saline running. Decreased appetite but drinking sufficiently.
[2023-11-05] MEDS: IBUPROFEN 400 MG TABLET PO (18:53)
[2023-11-06] MEDS: CEFAZOLIN 2 GM in 0.9 % SODIUM CHLORIDE Mini-bag 100 ML IVPB ×3 (00:18→15:21)
[2023-11-06 02:47] VITALS: BP 120/70; PULSE 74; RESP 18; TEMP 37.1; O2SAT 95
--- NOTE | 2023-11-06 05:09 | PC.NURSE ---
Shift note:Pt is independent in room, alert and oriented. The erythematous right knee swelling has gone beyond the previously marked borders. New marking done yesterday at 1930 and appeared to be within the marking when assessed this morning. Pain has been rated at 4 and pt refused pain medication. Temperature at the start of the shift was 100.5. Pt was given Ibuprofen about 45minutes before the temperature check. Repeated at 2230 and 0300 recorded as 99.3 and 98.8 respectively. Knee elevated on a pillow. SCD applied, pt refused TEDs application. Pt had adequate sleep.
[2023-11-06 06:36] LABS: Lactate* 0.8 mmol/L (0.5-1.9)
[2023-11-06 06:40] LABS: Basophils Absolute Auto 0.02 K/uL (0.00-0.30); Basophils Percent Auto 0.2 % (0.0-3.0); Eosinophils Absolute Auto 0.11 K/uL (0.00-0.50); Eosinophils Percent Auto 1.1 % (0.0-7.0); Hematocrit 39.7 % (37.0-53.0); Hemoglobin* 13.2 gm/dL (13.5-17.5); Immature Granulocytes Abs Auto 0.01 K/uL (0.00-0.30); Immature Granulocytes Pct Auto 0.1 %; Lymphocytes Absolute Auto 2.13 K/uL (0.90-2.90); Mean Corpuscular HGB Conc 33 gm/dL (32-36); Mean Corpuscular Hemoglobin 29 pg (26-34); Mean Corpuscular Volume 88 fL (80-100); Monocytes Percent Auto 7.2 % (0.0-11.0); Neutrophils Absolute Auto 7.12 K/uL (1.7-7.0); Neutrophils Percent Auto 70.4 % (42.0-72.0); Platelet Count* 202 K/uL (140-440); RDW Coefficient of Variation % 13.3 % (11.5-15.5); Red Blood Count 4.51 m/uL (4.30-5.90); White Blood Count* 10.12 K/uL (4.50-11.00)
[2023-11-06 06:42] LABS: Slide Review Reflex No
[2023-11-06 06:55] LABS: Chloride* 107 mmol/L (96-114); Potassium* 4.4 mmol/L (3.6-5.1); Sodium* 137 mmol/L (135-149)
[2023-11-06 06:58] LABS: Creatinine* 0.9 mg/dL (0.5-1.5); Est. Creatinine Clearance* 117.16; Estimated Glomerular Filt Rate 114 ml/min
[2023-11-06 06:59] LABS: Anion Gap 3 mEq/L (7-15); Blood Urea Nitrogen* 13 mg/dL (5-24); Calcium* 8.4 mg/dL (8.4-10.6); Carbon Dioxide* 27 mmol/L (20-32); Glucose* 103 mg/dL (60-115)
[2023-11-06 07:21] LABS: C Reactive Protein* 18.9 mg/dL (0.5-1.0)
[2023-11-06 08:00] VITALS: BP 108/72; PULSE 75; RESP 20; TEMP 36.7; O2SAT 97
[2023-11-06] MEDS: IBUPROFEN 400 MG TABLET PO ×2 (08:08→12:47)
--- NOTE | 2023-11-06 10:58 | P.DS_ITS ---
DS: Providers Provider Date Seen: 11/06/23 Date of admission: 11/05/23 14:49 Primary care physician: Feliz Russell MD Admitting Clinician: Geetha Duenas MD Attending Physician on discharge: Geetha Duenas MD Date of Discharge: 11/06/23 DS: Diagnosis Discharge Diagnosis (1) Cellulitis of right lower extremity from knee to ankle: Status: Acute Problem details: - Onset of symptoms 11/03/2023 - 11/04/2023: Ceftriaxone 1 g IV and started on cephalexin orally - 11/05/2023: Cellulitis extended well beyond the bounds of the markings from 11/04/2023. Orthopedic surgery consultation agreed most likely cellulitis not responding to IV and oral antibiotics. Recommended admission to the hospital, received 1 dose of vancomycin in the emergency department, started on cefazolin 2 g IV q.8. - 11/05 - greatly improved. White blood cell count is now normal. CRP has down trended nicely. Erythema has resolved. Discharge criteria met. Discharging on 1 week of Bactrim DS. (2) Tobacco use disorder: Status: Acute Problem details: - roughly 1 pack per day. (3) Elevated blood pressure reading without diagnosis of hypertension: Status: Acute Problem details: Numerous office visits. See scanned [facility] notes. (4) ADD (attention deficit disorder): Status: Chronic Problem details: - uses Adderall XR 20 mg p.o. b.i.d. with good results DS: Summary Hospital Course Hospital Course: FINAL DIAGNOSIS/FOLLOW UP ISSUES: 1. Cellulitis. Discharging on oral Bactrim. 2. Tobacco use disorder. Continue encouraging cessation. 3. ADD - patient to follow-up PCP for continued outpatient management BRIEF HOSPITAL COURSE: Patient was admitted for 2 days. Synopsis of acute inpatient issues are outlined above. Chronic medical conditions with notable findings outlined above. DISCHARGE MEDICATIONS: See Reconciled list - SIGNIFICANT CHANGES: Bactrim DS #14. Specific instructions to the patient and follow-up are outlined below. REVIEW OF SYSTEMS No new chest pain or dyspnea Pain controlled No voiding difficulties Tolerating diet challenge PHYSICAL EXAM: CONSTITUTIONAL: Alert. No acute distress. VITAL SIGNS: see record. HEENT: Normocephalic, atraumatic. PERRL, EOMI, conjunctivae pink, no scleral icterus. Ears and nose externally normal. Pharynx normal. NECK: No JVD. No carotid bruit, no thyromegaly, no adenopathy. CHEST: Clear to auscultation bilaterally. HEART: S1 and S2 normal. Edema ABDOMEN: Soft, nontender. Normal bowel sounds. MUSCULOSKELETAL: Exam of the right leg shows nice improvement in erythema. Everything is receding. By report everything is less red and swollen. He is up ambulatory in the room. NEURO: Cranial nerves intact. Grossly intact. No asymmetric findings. SKIN: Improving cellulitic changes of the right lower extremity PSYCHIATRIC: Mood euthymic. DISPOSITION: Time spent on discharge 37 minutes. Status at Discharge Functional status at discharge: independent ambulation Overall status at discharge: patient is progressing back to baseline Time Spent with Patient Time attestation: Total time spent providing and/or coordinating discharge services: Exam Const: Vital Signs, click to edit/add: Vital Signs - 24 hr 11/05/23 11:37 11/05/23 15:09 11/05/23 16:18 Temperature 98.4 F 99.9 F H 99.9 F H Pulse Rate [Pulse Oximeter] 90 Pulse Rate [Right Pulse Oximeter] 86 Respiratory Rate 16 18 Blood Pressure [Le ft Arm] 130/92 H Blood Pressure [Ri ght Upper Arm] 90/64 Pulse Oximetry 98 Oxygen Delivery Me thod Room Air 11/05/23 17:00 11/05/23 18:39 11/05/23 19:00 Temperature 99.7 F H 99.7 F H 100.5 F H Pulse Rate [Pulse Oximeter] Pulse Rate [Right Pulse Oximeter] 86 89 Respiratory Rate 18 18 Blood Pressure [Le ft Arm] 132/75 113/70 Blood Pressure [Ri ght Upper Arm] Pulse Oximetry 98 96 Oxygen Delivery Ia thod Room Air Room Air 11/05/23 22:15 11/05/23 22:15 11/05/23 22:15 Temperature 99.3 F Pulse Rate [Pulse Oximeter] Pulse Rate [Right Pulse Oximeter] 76 76 Respiratory Rate 18 18 18 Blood Pressure [Le ft Arm] 109/63 Blood Pressure [Ri ght Upper Arm] Pulse Oximetry 95 95 Oxygen Delivery Ia thod Room Air Room Air 11/06/23 02:47 11/06/23 08:00 11/06/23 08:00 Temperature 98.8 F Pulse Rate [Pulse Oximeter] Pulse Rate [Right Pulse Oximeter] 74 75 Respiratory Rate 18 20 20 Blood Pressure [Le ft Arm] 120/70 Blood Pressure [Ri ght Upper Arm] Pulse Oximetry 95 97 Oxygen Delivery Me thod Room Air Room Air 11/06/23 08:00 Temperature 98.1 F Pulse Rate [Pulse Oximeter] Pulse Rate [Right Pulse Oximeter] 75 Respiratory Rate 20 Blood Pressure [Le ft Arm] 108/72 Blood Pressure [Ri ght Upper Arm] Pulse Oximetry 97 Oxygen Delivery Me thod Room Air DS: Data Data Completed and Pending Labs on day of discharge: Labs from last 24 hours 11/06/23 11/05/23 11/05/23 06:15 13:40 12:14 WBC 10.12 16.53 H RBC 4.51 5.14 Hgb 13.2 L 14.9 Hct 39.7 44.6 MCV 88 87 MCH 29 29 MCHC 33 33 RDW Coeff of Isra 13.3 13.2 Plt Count 202 213 Neut % (Auto) 70.4 80.3 H Lymph % (Auto) 21.0 12.9 L [place] % (Auto) 7.2 6.3 Eos % (Auto) 1.1 0.2 Baso % (Auto) 0.2 0.1 Neut # (Auto) 7.12 H 13.30 H Lymph # (Auto) 2.13 2.10 [place] # (Auto) 0.70 1.00 H Eos # (Auto) 0.11 0.00 Baso # (Auto) 0.02 0.00 Abs Immat Gran (auto) 0.01 0.00 Imm/Tot Granulo (auto) 0.1 0.2 ESR 28 H Sodium 137 136 Potassium 4.4 4.8 Chloride 107 103 Carbon Dioxide 27 27 Anion Gap 3 L 6 L BUN 13 14 Creatinine 0.9 0.9 Estimated Creat Clear 117.16 117.16 Estimated GFR 114 114 Glucose 103 60 Lactate 0.8 1.7 Calcium 8.4 9.0 C-Reactive Protein 18.9 H 25.0 H Discharge Plan Discharge Disposition: Home, Self-Care Date of Admission: 11/05/23 14:49 Attending Provider on Discharge: Geetha Duenas Primary Care Provider: Feliz Russell Condition: Stable Anticipated Discharge Date/Time: 08/13/24 16:51 Discharge Medications: New Lactobacillus acidophilus 0.5 mg (100 million cell) Tablet 1,000 mmu cells PO TIDWM Qty: 60 0RF sulfamethoxazole-trimethoprim [Bactrim DS] 800-160 mg tablet 1 tab PO BID Qty: 14 0RF Rx Instructions: start tonight 11/06/23, continue twice a day until complete Continued dextroamphetamine-amphetamine [Adderall XR] 20 mg capsule,extended release 24hr 20 mg PO BID Qty: 60 0RF dextroamphetamine-amphetamine [Adderall XR] 10 mg capsule,extended release 24hr 20 mg PO BID Qty: 120 0RF dextroamphetamine-amphetamine [Adderall XR] 20 mg capsule,extended release 24hr 20 mg PO BID Qty: 60 0RF Rx Instructions: Follow-up due Oct 2023. Discharge Orders: Discharge Order (Routine); Ordered 11/06/23 Ordered By: Geetha Duenas Additional Instructions: Take your oral antibiotic starting tonight (BACTRIM) and then twice a day until finished Diarrhea is likely - I've sent a probiotic to your pharmacy, eat yogurt and you can take some OTC immodium. If it gets excessive - you need to return. Okay to shower and gently wash the leg Activity Level: Activity as Tolerated Discharge Diet: Regular Follow Up Appointments: Feliz Russell MD [Primary Care Provider] - (1-2 weeks, establish care and f/u hospitalization) Forms: [employer] Info Instructions
[2023-11-06 11:00] VITALS: BP 119/72; PULSE 64; RESP 18; O2SAT 98
[2023-11-06] MEDS: LACTOBACILLUS ACIDOPHILUS 1 TABLET 2 TAB PO (12:48)
[2023-11-06] MEDS: SODIUM CHLORIDE 0.9 % (FLUSH) 10 ML SYRINGE 5 ML IVF (12:48)
--- NOTE | 2023-11-06 15:45 | PC.NURSE ---
Nursing Care Hours: [id number] Pt this shift states he feels better than yesterday. VSS. Pain rated 4/10 in AM and 1/10 by noon. Walked the halls multiple times independently. Redness and warmth decreasing. Tolerating regular diet. Discharge instructions given to pt and spouse, all questions addressed. Waiting for 1600 IV ABX infusion before going home.
--- NOTE | 2023-11-06 19:54 | PC.NURSE ---
Last dose of antibitotic infused without complication. IV taken out in right arm. All questions answered pertaining to discharge. Pt ambulatory to the exit with his present.
== END 2023-11-06 16:15 | disposition home or self-care (01) ==
LOC: ED 14:15 → MEDSURG 14:49
PROVIDERS: Internal Medicine; Admitting Provider Family Medicine; Emergency Provider Student in an Organized Health Care Education/Training Program; PCP Internal Medicine; Visit Provider Family Medicine
DX: L03.115 Cellulitis of right lower limb (principal); M25.561 Pain in right knee; M25.461 Effusion, right knee; L53.9 Erythematous condition, unspecified; D72.829 Elevated white blood cell count, unspecified; L84 Corns and callosities; R03.0 Elevated blood-pressure reading, without diagnosis of hypertension; F12.90 Cannabis use, unspecified, uncomplicated; R11.0 Nausea; R53.83 Other fatigue; F98.8 Other specified behavioral and emotional disorders with onset usually occurring in childhood and adolescence; F17.200 Nicotine dependence, unspecified, uncomplicated; Z98.52 Vasectomy status; Z92.89 Personal history of other medical treatment
CPT/HCPCS: 36415; 80048; 83605; 85025; 85651; 86140; 96361; 96365; 96366; 96367; 96375; 99283; 99284; A9270; G0378; J0690; J3372; J7030

== ENCOUNTER 2023-11-07 15:53 | Inpatient (IN) | payer OTHER, SELFPAY ==
[2023-11-07 15:57] VITALS: BP 128/93; PULSE 88; RESP 16; TEMP 37.2; O2SAT 98; BMI 26.7
--- OUTSIDE RECORDS SUMMARY | 2023-11-07 15:58 | XMS_ITS | Clinical Summary ---
Author Organization [facility] Address [address] [place] [id number] Care Team Providers Care Storage Center Manager Name Role Phone Nestor Duenas MD Primary Care Provider [phone] Source Comments You are receiving this document as you are listed as the primary care provider,follow-up provider, or the patient has been referred to you for consultation.This is in compliance with the Medicare and[facility] EHR Incentive Program,which states Providers who transition their patient to another setting of careor provider of care or refers their patient to another provider of care shouldprovide summary care record for each transition of care or referral. [employer] Allergies No known active allergies Medications Medication [...] abuse 10/01/2015 Controlled substance agreement signed 04/13/2015 Overview (10/29/2015): Diagnosis: ADHD Medication: Adderall XR 20mg bid Controlled Substance Agreement reviewed and signed: yes Date agreement signed: 04/13/2015 Refill plan: 3 rx's q 3 mo and f/u due q 6 mo Clinician: Nestor Duenas MD Anxiety 08/19/2014 Attention deficit hyperactiv ity disorder (ADHD), predominantly inattentive type 08/19/2014 Overview (11/26/2015): seen last 10/01/15- 3 rx's for Adderall XR 20 mg bid #60 given- f/u due 04/02/16 Obesity 05/29/2013 Immunizations Name Administration Dates Next Due Influenza IIV4 (Quadrivalent ) 0.5mL (24160) 05/07/2019,04/10/2017,04/11/2016, 015,05/29/2013 PPSV23 (Pneumovax) 04/10/2017 TDAP (ADACEL) [...] CDT Oxygen Saturation 99% 03/01/2010 1:52 PM FLAGGER Inhaled Oxygen Concentration - - Weight 88.5 [...] Cholesterol 07/01/2022 05/29/2013 COVID-19 Vaccine (1 - 2022- season) 2022 Adult Preventive Visit 06/09/2023 06/08/2021 [...] LDL (IF NEEDED) Routine 05/29/2013 10:07 AM FLAGGER Screening cholesterol level from Last 3 Months or Most Recently Relevant to Health Maintenance Results * (ABNORMAL) Lipid Panel and Direct LDL(If Needed) (05/29/2013 10:07 AM FLAGGER) Cholesterol 203(H) 0 - 200 mg/dL HP CONVERSION Triglycerides 254(H) 0 - 149 mg/dL HP CONVERSION HDL Cholesterol 31(L) >39 mg/dL HP CONVERSION Cholesterol/HDL Ratio Screen 6.5 HP CONVERSION LDL Calculated 121 19 - 130 mg/dL HP CONVERSION Hours Fasting 12.0 HP CONVERSION 05/29/2013 10:0 7 AM FLAGGER 05/29/2013 10:07 AM FLAGGER Narrative HP CONVERSION - 05/29/2013 10:39 AM FLAGGER Performed at [facility] [address] [place] [address] Nelly Gillespie PA-C LAB_1 HP CONVERSION from Last 3 Months or Most Recently Relevant to Health Maintenance Care Teams Storage Center Manager Relationship Specialty Start Date End Date Nestor Duenas MD [address] [place] [address] PCP - General 08/27/14
--- NOTE | 2023-11-07 15:59 | PM.IMHP1 ---
Hospitalist- H&P: HPI History of Present Illness Date Seen: 11/07/23 Chief complaint: Knee cellulitis Narrative: Moreno Werner is a 38 year old male who is being readmitted to the hospital for right knee cellulitis. Symptoms 1st noted approximately 1 week ago. He was seen in the emergency department on 11/03; received IV ceftriaxone and started on Keflex. Symptoms then worsened and he re-presented to the emergency room on 11/04, admitted for IV vancomycin and cefazolin at that time. Seen by orthopedic team who did not feel he required intervention at that time. Yesterday morning, his symptoms, inflammatory markers, and white blood count had improved and he was discharged home on Bactrim. This morning, he was notably more tired than usual, woke up with significantly worsening R knee erythema/edema and pain. He saw Dr. Russell in clinic who recommended re-admission. No known lacerations or trauma, no inciting incidents for this cellulitis. Has a small abrasion inferior to patella that is scabbed over and has been present for many weeks. Histories updated below, Dr. Russell is PCP. Review of Systems Status of ROS: Reports: 10 or more systems reviewed and unremarkable except as noted in History and below Narrative: - no chest pain or dyspnea - no other skin concerns - no other joint aches/pains [facility] Medical History (Updated 11/07/23 @ 16:43 by Rosey Stovall MD) Tobacco use disorder ?F17.200 - Nicotine dependence, unspecified, uncomplicated (ICD-10) Olecranon bursitis ?M70.20 - Olecranon bursitis, unspecified elbow (ICD-10) Elevated blood pressure reading without diagnosis of hypertension ?R03.0 - Elevated blood-pressure reading, without diagnosis of hypertension (ICD-10) Cellulitis ?L03.90 - Cellulitis, unspecified (ICD-10) ADD (attention deficit disorder) ?F98.8 - Other specified behavioral and emotional disorders with onset usually occurring in childhood and adolescence (ICD-10) Surgical History History of dental surgery ?Z92.89 - Personal history of other medical treatment (ICD-10) Hx of vasectomy (07/04/21) ?Z98.52 - Vasectomy status (ICD-10) Social History (Updated 11/07/23 @ 15:36 by Griselda Ziegler ~ MIRANDA) What is your current living situation?: I presently have a place to live Problems where you live: no known problems Problems where you live details: N/A In the past 12 months, utilities in danger of being shut off: no In past 12 months, lack of transportation kept you from medical appts, meetings, work, or getting things needed for daily living: no In the past 12 mos, have been you worried that your food would run out before you had money to buy more?: never true In the past 12 mos, the food you bought just didn't last and you didn't have money to buy more?: never true Highest level of school completed/degree received: high school graduate Smoking Status: Current every day smoker What tobacco products do you use: cigarettes Smoking packs per day: 1 Smoking cigarettes per day: 20.0 Years smoked: 15 Smoking pack-years: 15.00 Do you use any of these nicotine containing products: None How often do you have a drink containing alcohol: 2-4 times a month Alcohol type: beer How many standard drinks containing alcohol do you have on a typical day: 1 or 2 How often do you have six or more drinks on one occasion: Never AUDIT-C Alcohol total score: 2 Non-prescribed substance use: marijuana (any form) Caffeine: Yes How often does anyone, including family, friends and others, physically hurt you: never How often does anyone, including family, friends and others, insult or talk down to you: never How often does anyone, including family, friends and others, threaten you with harm: never How often does anyone, including family, friends and others, scream or curse at you: never Little interest or pleasure in doing things: not at all Feeling down, depressed, or hopeless: not at all service: No Meds Home Medications and Allergies Allergies Allergy/AdvReac Type Severity Reaction Status Date / Time No Known Allergies Allergy Unknown Verified 11/07/23 15:15 Exam Narrative: Exam Narrative: GEN: Alert and oriented, nontoxic HEENT: EOMIs bilaterally, no scleral icterus CV: RRR (HR in the 90s during my exam), no concerning murmurs R: LCTA bilaterally without concerning wheezing Back: Normal contours, no tenderness to palpation over spinous processes Ext: + ttp over right patella with mild crepitus. + erythema and warmth Skin: Erythema over right patella that extends inferiorly and circumferentially. Neuro: No focal deficits, normal peripheral pulses Psych: Appropriate Assessment and Plan Assessment and plan (1) Cellulitis of right lower extremity from knee to ankle: Problem comment: - Onset of symptoms 11/03/2023 - 11/04/23: Ceftriaxone 1 g IV and oral Cephalexin from ED - 11/05/23: Worsened symptoms, admitted, received Vancomycin x1, then Cefazolin 2 g IV Q8. Seen by Ortho, no interventions required at that time - 11/06/23: improved objective and subjectively, discharged home on Bactrim DS - 11/07/23: seen in clinic, erythema/edema/pain worsened again, labs stable. Re-admitted on Cefazolin. Blood cultures obtained - Ortho re-consulted 11/07/23 Status: Acute (2) Tobacco use disorder: Problem comment: - approximately 1ppd, certainly contributes to increased risk of infections/immunosuppressed status Status: Acute (3) ADD (attention deficit disorder): Problem comment: - uses Adderall XR 20 mg po BID with good results Status: Chronic Plan - IV abx per above - recommend smoking cessation - updated at bedside, questions answered
[2023-11-07 16:17] LABS: Lactate* 1.5 mmol/L (0.5-1.9)
[2023-11-07 16:19] LABS: Basophils Absolute Auto 0.01 K/uL (0.00-0.30); Basophils Percent Auto 0.1 % (0.0-3.0); Hematocrit 44.6 % (37.0-53.0); Hemoglobin* 14.9 gm/dL (13.5-17.5); Immature Granulocytes Abs Auto 0.01 K/uL (0.00-0.30); Immature Granulocytes Pct Auto 0.1 %; Lymphocytes Percent Auto 18.9 % (20-44); Mean Corpuscular HGB Conc 33 gm/dL (32-36); Mean Corpuscular Hemoglobin 29 pg (26-34); Mean Corpuscular Volume 87 fL (80-100); Monocytes Percent Auto 5.4 % (0.0-11.0); Neutrophils Percent Auto 74.5 % (42.0-72.0); Platelet Count* 287 K/uL (140-440); Red Blood Count 5.15 m/uL (4.30-5.90); White Blood Count* 9.98 K/uL (4.50-11.00)
[2023-11-07 16:26] LABS: Slide Review Reflex No
[2023-11-07 16:50] LABS: Albumin* 4.5 g/dL (3.3-5.0); Chloride* 102 mmol/L (96-114); Potassium* 3.9 mmol/L (3.6-5.1); Sodium* 138 mmol/L (135-149)
[2023-11-07 16:52] LABS: Creatinine* 0.9 mg/dL (0.5-1.5); Est. Creatinine Clearance* 117.16; Estimated Glomerular Filt Rate 114 ml/min
[2023-11-07 16:53] LABS: Alanine Aminotransferase* 19 U/L (4-50); Alkaline Phosphatase* 81 U/L (40-150); Anion Gap 10 mEq/L (7-15); Aspartate Amino Transferase* 27 U/L (12-35); Bilirubin Total* 0.3 mg/dL (0.1-1.5); Blood Urea Nitrogen* 8 mg/dL (5-24); Carbon Dioxide* 26 mmol/L (20-32); Glucose* 68 mg/dL (60-115); Total Protein* 7.8 g/dL (6.0-8.3)
[2023-11-07 16:54] LABS: Calcium* 9.1 mg/dL (8.4-10.6)
[2023-11-07 16:56] LABS: C Reactive Protein* 8.3 mg/dL (0.5-1.0)
[2023-11-07] MEDS: CEFAZOLIN 2 GM in 0.9 % SODIUM CHLORIDE Mini-bag 100 ML IVPB (17:15)
[2023-11-07] MEDS: 0.9 % SODIUM CHLORIDE 250 ml IV (17:16)
[2023-11-07 18:10] LABS: Erythrocyte SedimentationRate* 60 mm/hr (2-15)
[2023-11-07 18:32] VITALS: TEMP 37.7
[2023-11-07] MEDS: ACETAMINOPHEN 325 MG TABLET 975 MG PO (18:32)
[2023-11-07 19:00] VITALS: BP 132/89; PULSE 86; RESP 16; TEMP 37.7; O2SAT 97
[2023-11-07 21:34] VITALS: TEMP 37
[2023-11-07] MEDS: SODIUM CHLORIDE 0.9 % (FLUSH) 10 ML SYRINGE 5 ML IVF (21:35)
[2023-11-08] VITALS (7 sets, daily range): BP systolic 106–143; BP diastolic 67–90; PULSE 64–84; RESP 16–18; TEMP 36.5–37.1; O2SAT 96–98
[2023-11-08] MEDS: CEFAZOLIN 2 GM in 0.9 % SODIUM CHLORIDE Mini-bag 100 ML IVPB (01:13)
[2023-11-08] MEDS: SODIUM CHLORIDE 0.9 % (FLUSH) 10 ML SYRINGE 5 ML IVF ×3 (01:14→20:32)
--- NOTE | 2023-11-08 08:05 | PC.NURSE ---
END OF SHIFT NOTE: UNEVENTFUL NIGHT. PT SLEPT WELL WITH - ROSANNE AT BEDSIDE. VSS ON RA; AFEBRILE. INDEPENDENT WITHIN ROOM. A&Ox4. CELLULITIS TO RIGHT KNEE REMAINS WITHIN MARKED OUTLINE. KNEE IS HOT, SWOLLEN AND TENDER TO TOUCH.
[2023-11-08] MEDS: CELECOXIB 200 MG CAPSULE PO (08:53)
[2023-11-08] MEDS: VANCOMYCIN 1.25 GM/250 ML 1.25 GM/250 ML PIGGYBACK IVPB ×2 (08:54→20:31)
[2023-11-08] MEDS: 0.9 % SODIUM CHLORIDE 250 ml IV (08:55)
--- NOTE | 2023-11-08 09:28 | PM.IMPN1 ---
Progress Note: A&P Assessment and plan (1) Cellulitis of right lower extremity from knee to ankle: Problem details: - Onset of symptoms 11/03/2023 - 11/04/23: Ceftriaxone 1 g IV and oral Cephalexin from ED - 11/05/23: Worsened symptoms, admitted, received Vancomycin x1, then Cefazolin 2 g IV Q8. Seen by Ortho, no interventions required at that time - 11/06/23: improved objective and subjectively, discharged home on Bactrim DS - 11/07/23: seen in clinic, erythema/edema/pain worsened again, labs stable. Re-admitted on Cefazolin. Blood cultures obtained - Ortho re-consulted 11/07/23 - 11/08/2023: Ordered MRSA nares screen, will start him on Vancomycin (D/Demar Cefazolin), will de-escalate if MRSA screen comes back negative. Will defer ordering imaging right now as the infection looks superficial clinically, no joint involvement or abscess collection. Status: Acute (2) Tobacco use disorder: Problem details: - approximately 1ppd, certainly contributes to increased risk of infections/immunosuppressed status Status: Acute (3) ADD (attention deficit disorder): Problem details: - uses Adderall XR 20 mg po BID with good results Status: Chronic Plan As above Time Spent With Patient Total time spent: Today I spent 50 minutes seeing the patient, reviewing Expanse and EPIC notes/diagnostics, discussing the care plan with our care time that includes social work, PT/OT, pharmacy, RT, intermediate and documenting my impressions and plan in the medical record. Subjective Date Seen: 11/08/23 Interval history: Patient was seen and examined at bedside today.? No acute events overnight.? Patient states that he feels well, he is still in pain at the extremes of ROM and on stepping on his Rt LE but he is able to bear wt on it. P/E Rt LE redness, tenderness, mild swelling. Redness involves skin of the lateral knee and extending ~ 20 cm above knee. Calf redness improving. Rt knee ROM within normal limits. No fevers. Exam Narrative: Exam Narrative: Physical exam GENERAL: Comfortable, no acute distress. HEAD AND NECK: Atraumatic, normocephalic CARDIOVASCULAR: RRR. Normal S1, S2. No murmurs. RESPIRATORY: Clear to auscultation B/L. Good air entry B/L. No wheezes or rhonchi. GASTROINTESTINAL: Not distended, not tender to palpation. NEUROLOGY: Alert, awake, oriented X 3. Normal speech. No focal weakness. MSK: Rt LE redness, tenderness, mild swelling. Redness involves skin of the lateral knee and extending ~ 20 cm above knee. Calf redness improving. Rt knee ROM within normal limits. PSYCH: Normal mood, normal affect. Const: Vital Signs, click to edit/add: Vital Signs - 24 hr 11/07/23 15:57 11/07/23 18:32 11/07/23 19:00 Temperature 98.9 F 99.8 F H 99.8 F H Pulse Rate [Left P ulse Oximeter] 88 86 Respiratory Rate 16 16 Blood Pressure [Le ft Arm] 128/93 H 132/89 Pulse Oximetry 98 97 Oxygen Delivery Me thod Room Air Room Air 11/07/23 21:34 11/08/23 01:00 11/08/23 01:00 Temperature 98.6 F 98.5 F Pulse Rate [Left P ulse Oximeter] 67 67 Respiratory Rate 16 16 Blood Pressure [Le ft Arm] 106/67 Pulse Oximetry 98 Oxygen Delivery Me thod Room Air 11/08/23 03:00 11/08/23 07:09 11/08/23 07:09 Temperature 98.4 F 97.7 F Pulse Rate [Left P ulse Oximeter] 64 73 73 Respiratory Rate 18 18 Blood Pressure [Le ft Arm] 114/69 117/89 Pulse Oximetry 98 96 Oxygen Delivery Me thod Room Air Room Air Labs Labs: Laboratory Results - last 24 hr 11/07/23 16:11 WBC 9.98 RBC 5.15 Hgb 14.9 Hct 44.6 MCV 87 MCH 29 MCHC 33 RDW Coeff of Isra 13.0 Plt Count 287 Neut % (Auto) 74.5 H Lymph % (Auto) 18.9 L [place] % (Auto) 5.4 Eos % (Auto) 1.0 Baso % (Auto) 0.1 Neut # (Auto) 7.40 H Lymph # (Auto) 1.90 [place] # (Auto) 0.50 Eos # (Auto) 0.10 Baso # (Auto) 0.01 Abs Immat Gran (auto) 0.01 Imm/Tot Granulo (auto) 0.1 ESR 60 H Sodium 138 Potassium 3.9 Chloride 102 Carbon Dioxide 26 Anion Gap 10 BUN 8 Creatinine 0.9 Estimated Creat Clear 117.16 Estimated GFR 114 Glucose 68 Lactate 1.5 Calcium 9.1 Total Bilirubin 0.3 AST 27 ALT 19 Alkaline Phosphatase 81 C-Reactive Protein 8.3 H Total Protein 7.8 Albumin 4.5
--- NOTE | 2023-11-08 12:11 | P.ORCN_ITS ---
History of Present Illness HPI Time Seen by Provider: 11:30 Date Seen: 11/08/23 Consult date: 11/08/23 Requesting physician: Rosey Stovall Chief complaint: Knee cellulitis Narrative: Moreno was admitted yesterday directly from Dr. Russell's clinic for worsening of his cellulitis. He Was discharged 11/06/2023 for the same and returned 11/07/2023. Moreno states that redness and discomfort has been improving somewhat overnight. Cellulitis is located over the right knee, extending proximally about 20 cm and also extends from the knee to the ankle. The area is outlined. He is able to range his knee. He also feels warmth in the reddened area, and pain to the that touch over the patella. He has not had any fever. He is getting vancomycin IV. He was discharged to home on Bactrim on the . Nares are swab today for MRSA. Review of Systems Narrative: Patient denies nausea, vomiting, fever, chills, chest pain, shortness of breath. PFSH PFSH Medical History Tobacco use disorder ?F17.200 - Nicotine dependence, unspecified, uncomplicated (ICD-10) Olecranon bursitis ?M70.20 - Olecranon bursitis, unspecified elbow (ICD-10) Elevated blood pressure reading without diagnosis of hypertension ?R03.0 - Elevated blood-pressure reading, without diagnosis of hypertension (ICD-10) Cellulitis ?L03.90 - Cellulitis, unspecified (ICD-10) ADD (attention deficit disorder) ?F98.8 - Other specified behavioral and emotional disorders with onset usually occurring in childhood and adolescence (ICD-10) Surgical History History of dental surgery ?Z92.89 - Personal history of other medical treatment (ICD-10) Hx of vasectomy (07/04/21) ?Z98.52 - Vasectomy status (ICD-10) Social History What is your current living situation?: I presently have a place to live Problems where you live: no known problems Problems where you live details: N/A In the past 12 months, utilities in danger of being shut off: no In past 12 months, lack of transportation kept you from medical appts, meetings, work, or getting things needed for daily living: no In the past 12 mos, have been you worried that your food would run out before you had money to buy more?: never true In the past 12 mos, the food you bought just didn't last and you didn't have money to buy more?: never true Highest level of school completed/degree received: high school graduate Smoking Status: Current every day smoker What tobacco products do you use: cigarettes Smoking packs per day: 1 Smoking cigarettes per day: 20.0 Years smoked: 15 Smoking pack-years: 15.00 Do you use any of these nicotine containing products: None How often do you have a drink containing alcohol: 2-4 times a month Alcohol type: beer How many standard drinks containing alcohol do you have on a typical day: 1 or 2 How often do you have six or more drinks on one occasion: Never AUDIT-C Alcohol total score: 2 Non-prescribed substance use: marijuana (any form) Caffeine: Yes How often does anyone, including family, friends and others, physically hurt you : never How often does anyone, including family, friends and others, insult or talk down to you: never How often does anyone, including family, friends and others, threaten you with harm: never How often does anyone, including family, friends and others, scream or curse at you: never Little interest or pleasure in doing things: not at all Feeling down, depressed, or hopeless: not at all service: No Meds Home Medications and Allergies Allergies Allergy/AdvReac Type Severity Reaction Status Date / Time No Known Allergies Allergy Unknown Verified 11/07/23 15:15 Ortho Exam Narrative Exam Narrative: Alert and oriented x3. Patient is in no acute distress. Converses without labored breathing. Hearing is grossly intact. He is able to ambulate. Examination right knee shows erythema over the anterior/anterolateral knee and extends proximally. The erythema about the calf does appear to be improving from a when I last saw him on 11/04. Exquisitely tender to palpation over the patella. Prepatellar bursa and infrapatellar bursa bogginess is palpable. No effusion is palpable. He is able to range his knee without joint pain, however pain about the skin and soft tissue with the extremes of motion. Areas of erythema are warm. There are no open wounds or draining wounds. There are 2 small areas of scab from previous injury over the anterior lateral tibial area proximally. Sharpie marker outlines erythematous areas. He is able to straight leg raise. CMS is intact right extremity. Const Vital Signs, click to edit/add: Vital Signs - 24 hr 11/07/23 15:57 11/07/23 18:32 11/07/23 19:00 Temperature 98.9 F 99.8 F H 99.8 F H Pulse Rate [Left Pulse Oximeter] 88 86 Respiratory Rate 16 16 Blood Pressure [Left Arm] 128/93 H 132/89 Pulse Oximetry 98 97 Oxygen Delivery Method Room Air Room Air 11/07/23 21:34 11/08/23 01:00 11/08/23 01:00 Temperature 98.6 F 98.5 F Pulse Rate [Left Pulse Oximeter] 67 67 Respiratory Rate 16 16 Blood Pressure [Left Arm] 106/67 Pulse Oximetry 98 Oxygen Delivery Method Room Air 11/08/23 03:00 11/08/23 07:09 11/08/23 07:09 Temperature 98.4 F 97.7 F Pulse Rate [Left Pulse Oximeter] 64 73 73 Respiratory Rate 18 18 Blood Pressure [Left Arm] 114/69 117/89 Pulse Oximetry 98 96 Oxygen Delivery Method Room Air Room Air 11/08/23 10:42 Temperature 98.7 F Pulse Rate [Left Pulse Oximeter] 70 Respiratory Rate 16 Blood Pressure [Left Arm] 116/78 Pulse Oximetry 98 Oxygen Delivery Method Room Air Results Labs Labs: Laboratory Results - last 48 hr 11/07/23 16:11 WBC 9.98 RBC 5.15 Hgb 14.9 Hct 44.6 MCV 87 MCH 29 MCHC 33 RDW Coeff of Isra 13.0 Plt Count 287 Neut % (Auto) 74.5 H Lymph % (Auto) 18.9 L [place] % (Auto) 5.4 Eos % (Auto) 1.0 Baso % (Auto) 0.1 Neut # (Auto) 7.40 H Lymph # (Auto) 1.90 [place] # (Auto) 0.50 Eos # (Auto) 0.10 Baso # (Auto) 0.01 Abs Immat Gran (auto) 0.01 Imm/Tot Granulo (auto) 0.1 ESR 60 H Sodium 138 Potassium 3.9 Chloride 102 Carbon Dioxide 26 Anion Gap 10 BUN 8 Creatinine 0.9 Estimated Creat Clear 117.16 Estimated GFR 114 Glucose 68 Lactate 1.5 Calcium 9.1 Total Bilirubin 0.3 AST 27 ALT 19 Alkaline Phosphatase 81 C-Reactive Protein 8.3 H Total Protein 7.8 Albumin 4.5 Diagnostic results Additional Comments: Nares swab MRSA a screen pending Right knee bursa aspiration, 1 mL cultures pending, blood cultures pending Procedures Bursa Procedures Site of procedure: prepatellar bursa (aspiration, right) Method: without imaging Assessment and Plan Assessment and plan (1) Cellulitis of right lower extremity from knee to ankle: Problem comment: - Onset of symptoms 11/03/2023 - 11/04/23: Ceftriaxone 1 g IV and oral Cephalexin from ED - 11/05/23: Worsened symptoms, admitted, received Vancomycin x1, then Cefazolin 2 g IV Q8. Seen by Ortho, no interventions required at that time - 11/06/23: improved objective and subjectively, discharged home on Bactrim DS - 11/07/23: seen in clinic, erythema/edema/pain worsened again, labs stable. Re- admitted on Cefazolin. Blood cultures obtained - Ortho re-consulted 11/07/23 - 11/08/2023: Ordered MRSA nares screen, will start him on Vancomycin (D/Demar Cefazolin), will de-escalate if MRSA screen comes back negative. Will defer ordering imaging right now as the infection looks superficial clinically, no joint involvement or abscess collection. Status: Acute Total time spent: Total time spent is greater than 50% in coordination of care (as documented) at patient's floor/unit and/or counseling patient: (2) Tobacco use disorder: Problem comment: - approximately 1ppd, certainly contributes to increased risk of infections/immunosuppressed status Status: Acute Total time spent: Total time spent is greater than 50% in coordination of care (as documented) at patient's floor/unit and/or counseling patient: (3) ADD (attention deficit disorder): Problem comment: - uses Adderall XR 20 mg po BID with good results Status: Chronic Total time spent: Total time spent is greater than 50% in coordination of care (as documented) at patient's floor/unit and/or counseling patient: Plan Aspiration/attempt at aspiration is offered to Moreno for the bogginess that is palpable over the pre patella bursa and infrapatellar bursa. We discussed that if I am able to get fluid from the bursa, cultures may or may not grow for he has been on several antibiotics but it would be worth a try. He agrees. I have reviewed the case with Dr. Duenas. Dr. Duenas has reviewed Moreno's chart as well. Together we felt it appropriate to continue antibiotics IV and re- evaluate him tomorrow. Dr. Duenas will check on him tomorrow, Sunday. If he does not fully improve, I&D of the prepatellar/infrapatellar bursa may be needed. Hopefully this can be avoided. Moreno Is in agreement of the plan. All questions were answered. Procedure: A detailed conversation was had regarding the description, purpose and nature of right knee prepatellar bursa aspiration. Risks, benefits, possible complications, and non surgical alternatives were discussed with the patient during this conversation. The patient was given the opportunity to ask questions and received answers to their satisfaction. The patient indicated that they understood the purpose and nature of right knee prepatellar bursa aspiration and its risks, benefits, possible complications, and nonsurgical alternatives. The patient wants to undergo procedure given the information provided. Verbal, and written consent was obtained from the patient prior to the procedure. After the injection areas was sterilely prepped with ChloraPrep, 3 mL of 1% lidocaine is injected under the skin and in subcutaneous tissue. Only One mL of blood-tinged joint fluid is aspirated. The patient tolerated the procedure well. Band-Aid was placed.
--- NOTE | 2023-11-08 18:09 | PC.NURSE ---
(Shift 7-15) Pt alert and oriented. Pt had complaints of pain ranging from 0-3. Pt up independently in room. Pt has some limited ROM in RLE. Pt?s right knee and calf are red and are warm to the touch. Area reoutlined and dated; redness within lines. MRSA screen done this AM. Marisa QUINTANA aspirated knee and sent to lab for cultures?
[2023-11-09 03:00] VITALS: BP 117/72; PULSE 62; RESP 16; TEMP 36.8; O2SAT 99
--- NOTE | 2023-11-09 05:42 | PC.NURSE ---
SHIFT NOTE: Pt A&O, pleasant. Uneventful night, pt up independently in his room. Denies pain, SOB, CP, and N/V. VSS on RA, afebrile.
[2023-11-09 06:23] LABS: Basophils Absolute Auto 0.02 K/uL (0.00-0.30); Basophils Percent Auto 0.3 % (0.0-3.0); Eosinophils Absolute Auto 0.11 K/uL (0.00-0.50); Eosinophils Percent Auto 1.8 % (0.0-7.0); Hematocrit 43.3 % (37.0-53.0); Hemoglobin* 14.5 gm/dL (13.5-17.5); Immature Granulocytes Abs Auto 0.05 K/uL (0.00-0.30); Immature Granulocytes Pct Auto 0.8 %; Lymphocytes Absolute Auto 2.02 K/uL (0.90-2.90); Lymphocytes Percent Auto 33.4 % (20-44); Mean Corpuscular HGB Conc 34 gm/dL (32-36); Mean Corpuscular Hemoglobin 29 pg (26-34); Mean Corpuscular Volume 87 fL (80-100); Monocytes Percent Auto 9.4 % (0.0-11.0); Neutrophils Absolute Auto 3.27 K/uL (1.7-7.0); Neutrophils Percent Auto 54.3 % (42.0-72.0); Platelet Count* 282 K/uL (140-440); RDW Coefficient of Variation % 13.1 % (11.5-15.5); White Blood Count* 6.04 K/uL (4.50-11.00)
[2023-11-09 06:54] LABS: Slide Review Reflex No
[2023-11-09] MEDS: SODIUM CHLORIDE 0.9 % (FLUSH) 10 ML SYRINGE 5 ML IVF (08:38)
[2023-11-09] MEDS: VANCOMYCIN 1.25 GM/250 ML 1.25 GM/250 ML PIGGYBACK IVPB (08:38)
[2023-11-09] MEDS: CELECOXIB 200 MG CAPSULE PO (08:38)
--- NOTE | 2023-11-09 09:09 | P.DS_ITS ---
DS: Providers Provider Date Seen: 11/09/23 Date of admission: 11/07/23 16:28 Primary care physician: Feliz Russell MD Admitting Clinician: Rosey Stovall MD Consults: 11/07/23 16:21 Consult to Physician [CONS] Routine Comment: Consulting Provider: Orthopedics, [facility] Has provider been notified: No Attending Physician on discharge: Kamryn Bailey MD DS: Diagnosis Discharge Diagnosis (1) Cellulitis of right lower extremity from knee to ankle: Status: Acute Problem details: - Onset of symptoms 11/03/2023 - 11/04/23: Ceftriaxone 1 g IV and oral Cephalexin from ED - 11/05/23: Worsened symptoms, admitted, received Vancomycin x1, then Cefazolin 2 g IV Q8. Seen by Ortho, no interventions required at that time - 11/06/23: improved objective and subjectively, discharged home on Bactrim DS - 11/07/23: seen in clinic, erythema/edema/pain worsened again, labs stable. Re- admitted on Cefazolin. Blood cultures obtained - Ortho re-consulted 11/07/23 - 11/08/2023: Ordered MRSA nares screen, will start him on Vancomycin (D/Demar Cefazolin), will de-escalate if MRSA screen comes back negative. Will defer ordering imaging right now as the infection looks superficial clinically, no joint involvement or abscess collection. - 11/09/2023: MRSA nares screen was negative. Pt sent home on oral antibiotics (Doxycycline) twice a day for a week. Orthopedics underwent Rt knee aspiration that was sent for culture. Pending, for Follow up. PCP F/up in 1 wk. (2) Tobacco use disorder: Status: Acute Problem details: - approximately 1ppd, certainly contributes to increased risk of infections/immunosuppressed status (3) ADD (attention deficit disorder): Status: Chronic Problem details: - uses Adderall XR 20 mg po BID with good results DS: Summary Hospital Course Hospital Course: FINAL DIAGNOSIS / FOLLOW UP ISSUES: Rt LE cellulitis PCP F/up Rt knee Cx pending BRIEF HOSPITAL COURSE: Patient was admitted for [1] days. Synopsis of acute inpatient issues are outlined above. Chronic medical conditions with notable findings outlined above. Pt was given Vancomycin. MRSA nares screen was negative. Pt sent home on oral antibiotics (Doxycycline) twice a day for a week. Orthopedics underwent Rt knee aspiration that was sent for culture. Pending, for Follow up. PCP F/up in 1 wk. DISCHARGE MEDICATIONS: See Reconciled list - SIGNIFICANT CHANGES: Doxycicline Specific instructions to the patient and follow-up are outlined below. REVIEW OF SYSTEMS Pain controlled No voiding difficulties Tolerating diet PHYSICAL EXAM: GENERAL: Comfortable, no acute distress. HEAD AND NECK: Atraumatic, normocephalic CARDIOVASCULAR: RRR. Normal S1, S2. No murmurs. RESPIRATORY: Clear to auscultation B/L. Good air entry B/L. No wheezes or rhonchi. GASTROINTESTINAL: Not distended, not tender to palpation. NEUROLOGY: Alert, awake, oriented X 3. Normal speech. No focal weakness. MSK: Rt LE redness, tenderness, no swelling. Redness involving skin of the lateral knee, above knee and Calf redness improving. Rt knee ROM within normal limits. PSYCH: Normal mood, normal affect. DISPOSITION: Home on PO Abx Time Spent with Patient Time attestation: Total time spent providing and/or coordinating discharge services: Exam Const: Vital Signs, click to edit/add: Vital Signs - 24 hr 11/08/23 10:42 11/08/23 15:00 11/08/23 15:00 Temperature 98.7 F 98.4 F Pulse Rate [Left P ulse Oximeter] 70 70 84 Respiratory Rate 16 16 16 Blood Pressure [Le ft Arm] 116/78 126/81 Pulse Oximetry 98 98 Oxygen Delivery Me thod Room Air Room Air 11/08/23 19:00 11/08/23 22:36 11/08/23 22:36 Temperature 98.2 F 98.2 F Pulse Rate [Left P ulse Oximeter] 72 72 74 Respiratory Rate 16 16 16 Blood Pressure [Le ft Arm] 143/90 H 126/73 Pulse Oximetry 97 98 Oxygen Delivery Me thod Room Air Room Air 11/09/23 03:00 Temperature 98.2 F Pulse Rate [Left P ulse Oximeter] 62 Respiratory Rate 16 Blood Pressure [Le ft Arm] 117/72 Pulse Oximetry 99 Oxygen Delivery Me thod Room Air DS: Data Data Completed and Pending Labs on day of discharge: Labs from last 24 hours 11/09/23 05:58 WBC 6.04 RBC 5.00 Hgb 14.5 Hct 43.3 MCV 87 MCH 29 MCHC 34 RDW Coeff of Isra 13.1 Plt Count 282 Neut % (Auto) 54.3 Lymph % (Auto) 33.4 [place] % (Auto) 9.4 Eos % (Auto) 1.8 Baso % (Auto) 0.3 Neut # (Auto) 3.27 Lymph # (Auto) 2.02 [place] # (Auto) 0.60 Eos # (Auto) 0.11 Baso # (Auto) 0.02 Abs Immat Gran (auto) 0.05 Imm/Tot Granulo (auto) 0.8 Preliminary micro results at discharge 11/07/23 16:11 Blood Culture - Preliminary Blood NO GROWTH AFTER 24 HOURS 11/08/23 10:36 Body Fluid Culture - Preliminary Abscess - Right Culture in Progress 11/08/23 10:36 Anaerobic Culture - Preliminary Knee,Right Culture in Progress Discharge Plan Discharge Disposition: Home, Self-Care Date of Admission: 11/07/23 16:28 Attending Provider on Discharge: Kamryn Bailey Consulting Providers: Alan Hernandez; Maine Chew; Aung Duenas; Marisa Singer; Casey Rosales; Mamadou Spencer; Alejandro Lama Primary Care Provider: Feliz Russell Condition: Improved Anticipated Discharge Date/Time: 11/09/23 09:19 Discharge Medications: New doxycycline monohydrate 100 mg capsule 100 mg PO BID 7 Days Qty: 14 0RF Continued dextroamphetamine-amphetamine [Adderall XR] 20 mg capsule,extended release 24hr 20 mg PO BID Qty: 60 0RF Rx Instructions: Follow-up due Oct 2023. Lactobacillus acidophilus 0.5 mg (100 million cell) Tablet 1,000 mmu cells PO TIDWM Qty: 60 0RF Discontinued sulfamethoxazole-trimethoprim [Bactrim DS] 800-160 mg tablet 1 tab PO BID Qty: 14 0RF Rx Instructions: start tonight 11/06/23, continue twice a day until complete Discharge Orders: Discharge Order (Routine); Ordered 11/09/23 Ordered By: Kamryn Bailey Patient Education: Cellulitis (GEN) Additional Instructions: Please take your antibiotics (Doxycyclin) twice a day for a week. Please follow up with your primary care physician. Do not hesitate to visit the ED for fever or worsening pain, movement or swelling. Activity Level: Activity as Tolerated Discharge Diet: Regular Follow Up Appointments: Feliz Russell MD [Primary Care Provider] - (Please follow up in 1 week. Pt was treated with vancomycin IV for Rt LE cellulitis and improved. MRSA nares screen was negative. Pt sent home on oral antibiotics (Doxycycline) twice a day for a week. Orthopedics underwent Rt knee aspirattion that was sent for culture. Pending.) Forms: [employer] Info Instructions
[2023-11-09 09:17] VITALS: BP 129/77; PULSE 71; RESP 18; TEMP 36.9; O2SAT 99
[2023-11-09 09:18] VITALS: PULSE 71; RESP 18
--- NOTE | 2023-11-09 13:29 | PC.NURSE ---
Discharge: Patient pleasant and cooperative, A&O. VSS, afebrile. Patient denies pain this shift. IV removed with tip intact. Discharge instructions provided, all questions answered. Discharged to home with at 1041.
== END 2023-11-09 10:41 | disposition home or self-care (01) | DRG 603 ==
PROVIDERS: Student in an Organized Health Care Education/Training Program; Admitting Provider Family Medicine; PCP Internal Medicine; Visit Provider Family Medicine
DX: L03.115 Cellulitis of right lower limb (principal); F17.200 Nicotine dependence, unspecified, uncomplicated; F98.8 Other specified behavioral and emotional disorders with onset usually occurring in childhood and adolescence
CPT/HCPCS: 36415; 80053; 83605; 85025; 85651; 86140; 87040; 87070; 87075; 87081; 87102; 87116; 87205; A9270; J0690; J3372; J7050

== ENCOUNTER 2024-08-26 10:13 | Emergency (ER) | payer OTHER, SELFPAY ==
[2024-08-26 10:15] VITALS: BP 140/85; PULSE 751; RESP 18; TEMP 36.3; O2SAT 97; BMI 26.3
--- OUTSIDE RECORDS SUMMARY | 2024-08-26 10:15 | XMS_ITS | Clinical Summary ---
Author Organization [facility] Address [address] [place] [id number] Care Team Providers Care Tallow Pumper Name Role Phone Nestor Duenas MD Primary Care Provider [phone] Source Comments You are receiving this document as you are listed as the primary care provider,follow-up provider, or the patient has been referred to you for consultation.This is in compliance with the Medicare andMedicaid EHR Incentive Program,which states Providers who transition their patient to another setting of careor provider of care or refers their patient to another provider of care shouldprovide summary care record for each transition of care or referral. [facility] Allergies No known active allergies Medications amphetamine-dex troamphetamine XR (ADDERALL XR) 20 MG 24 hour release capsule Take 1 Capsule (20 mg) by mouth two times a day. 60 Capsule 08/09/2021 Active amphetamine-dex troamphetamine XR (ADDERALL XR) 20 MG 24 hour release capsule Take 1 Capsule (20 mg) by mouth two times a day. 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 Not on file Not on file Last Filed Vital Signs Vital Sign Reading Time Taken Comments Blood Pressure 141/87 06/08/2021 12:05 PM CDT Pulse 86 06/08/2021 12:05 PM CDT Temperature 37.2 C (99 F) 09/21/2013 3:11 PM CDT Respiratory Rate 20 09/21/2013 3:11 PM CDT Oxygen Saturation 99% 03/01/2010 1:52 PM [employer] Inhaled Oxygen Concentration - - Weight 88.5 kg (195 lb) 06/08/2021 11:54 AM CDT Height 180.3 cm (5' 11) 06/08/2021 11:54 AM CDT Body Mass Index 27.2 06/08/2021 11:54 AM CDT Plan of Treatment Health Maintenance Due Date Last Done Comments Hep C Screening (Preventive Services) 1987 HIV Screening (Preventive Services) 2003 HepB Vaccine (1) 07/01/2006 Pneumococcal Vaccine (2 of 2 - PCV) 04/10/2018 04/10/2017 Cholesterol 07/01/2022 05/29/2013 Adult Preventive Visit 06/09/2023 06/08/2021 (Comple louise) COVID-19 Vaccine ( - season) 2023 Influenza Vaccine (Season Ended) 2024 05/07/2019, 04/10/2017, 04/11/2016, Additional history exists DTaP/Tdap/Td Vaccine (3 - Tdap) 12/04/2024 12/04/2014, 11/24/2010 Zoster/Shingles Vaccine (1 of 2) 07/01/2037 HPV Vaccine Aged Out No longer eligi ble based on patient's age to complete this topic HepA Vaccine Aged Out No longer eligi ble based on patient's age to complete this topic Hib Vaccine Aged Out No longer eligi ble based on patient's age to complete this topic IPV (Polio) Vaccine Aged Out No longe r eligible based on patient's age to complete this topic MCV4 Vaccine Aged Out No longer eligi ble based on patient's age to complete this topic Meningococcal B Vaccine Aged Out No l onger eligible based on patient's age to complete this topic Procedures Procedure Name Priority Date/Time Associated Diagnosis Comments LIPID PANEL & DIRECT LDL (IF NEEDED) Routine 05/29/2013 10:07 AM [facility] [employer] Screening cholesterol level from Last 3 Months or Most Recently Relevant to Health Maintenance Results * (ABNORMAL) Lipid Panel and Direct LDL(If Needed) (05/29/2013 10:07 AM [facility] [employer]) Cholesterol 203(H) 0 - 200 mg/dL HP CONVERSION Triglycerides 254(H) 0 - 149 mg/dL HP CONVERSION HDL Cholesterol 31(L) >39 mg/dL HP CONVERSION Cholesterol/HDL Ratio Screen 6.5 HP CONVERSION LDL Calculated 121 19 - 130 mg/dL HP CONVERSION Hours Fasting 12.0 HP CONVERSION 05/29/2013 10:0 7 AM [facility] [employer] 05/29/2013 10:07 AM [facility] [employer] Narrative HP CONVERSION - 05/29/2013 10:39 AM [facility] Performed at [facility], [address] [place] [address] Nelly Gillespie PA-C LAB_1 Final Result HP CONVERSION from Last 3 Months or Most Recently Relevant to Health Maintenance Care Teams Tallow Pumper Relationship Specialty Start Date End Date Nestor Duenas MD [address] [place], [place] [id number] PCP - General 08/27/14
[2024-08-26] MEDS: LIDOCAINE/EPINEP/TETRACAINE 3 ML GEL..ML. TOPICAL (10:36)
[2024-08-26] MEDS: cephALEXin 500 MG CAPSULE PO (10:46)
--- NOTE | 2024-08-26 10:50 | ED_ITS ---
HPI - Wound/Laceration General Date Seen: 08/26/24 Chief Complaint: Laceration/Wound Stated Complaint: Lac L hand Time Seen by Provider: 08/26/24 10:20 Source: patient Mode of arrival: ambulatory Limitations: no limitations History of Present Illness HPI narrative: Patient is a very nice right-hand dominant gentleman who presents here with a laceration between his 3rd and 4th digits in the webspace of his left hand, this occurred when he was working with some siding in his garage, upper was a little bit D and it did bleed some, and comes in for assessment he denies any numbness tingling or weakness, there is no loss of motion, has full extension flexion is far as he knows. He initially told me that his tetanus was up-to-date last year as he got stitches, but on searching we can find that he has not had since 2014, no history of any immunosuppressive diseases. Place: home Patient tetanus UTD: No Context: accidental Associated symptoms: none Related Data Previous Rx's ?Medication ?Instructions ?Recorded Lactobacillus acidophilus 0.5 mg 1,000 mmu cells PO TI DWM #60 tabs 11/06/23 (100 million cell) tablet dextroamphetamine-amphetamine ER 40 mg (4 x 10 mg) PO QAM #120 caps 07/31/24 10 mg 24hr capsule,extend release (Adderall XR) cephalexin 500 mg capsule 500 mg PO BID #14 caps 08/26 Allergies Allergy/AdvReac Type Severity Reaction Status Date / Time No Known Allergies Allergy Unknown Verified 11/20/23 09:58 Review of Systems Status of ROS: Reports: 6 or more systems reviewed and unremarkable except as noted in History and below PFSH [facility] Medical History (Updated 08/26/24 @ 11:30 by Khai Velasquez MD) Cellulitis ?L03.90 - Cellulitis, unspecified (ICD-10) Surgical History History of dental surgery ?Z92.89 - Personal history of other medical treatment (ICD-10) Hx of vasectomy (07/04/21) ?Z98.52 - Vasectomy status (ICD-10) Social History What is your current living situation?: I presently have a place to live Problems where you live: no known problems Problems where you live details: N/A In the past 12 months, utilities in danger of being shut off: no In past 12 months, lack of transportation kept you from medical appts, meetings, work, or getting things needed for daily living: no In the past 12 mos, have been you worried that your food would run out before you had money to buy more?: never true In the past 12 mos, the food you bought just didn't last and you didn't have money to buy more?: never true Highest level of school completed/degree received: high school graduate Smoking Status: Current every day smoker What tobacco products do you use: cigarettes Smoking packs per day: 1 Smoking cigarettes per day: 20.0 Years smoked: 15 Smoking pack-years: 15.00 Do you use any of these nicotine containing products: None How often do you have a drink containing alcohol: 2-4 times a month Alcohol type: beer How many standard drinks containing alcohol do you have on a typical day: 1 or 2 How often do you have six or more drinks on one occasion: Never AUDIT-C Alcohol total score: 2 Non-prescribed substance use: marijuana (any form) Caffeine: Yes How often does anyone, including family, friends and others, physically hurt you : never How often does anyone, including family, friends and others, insult or talk down to you: never How often does anyone, including family, friends and others, threaten you with harm: never How often does anyone, including family, friends and others, scream or curse at you: never service: No Exam Narrative: Exam Narrative: On examination his left hand, there is approximately 1-2 cm laceration her digital web space between his 3rd and 4th finger. More dorsal than palmar. Full range of motion of flexion extension of both 3rd and 4th fingers, both D IP and PIP MCP joints. No sensory abnormality up the sides of his 3rd and 4th fingers. Cap refill excellent, no other injury noted. I discussed with the patient, that we should use some let over the area, then anesthetized and then well irrigated out fully. Update his tetanus, give him a prophylactic dose of antibiotics, he was comfortable with this plan Const: Vital Signs, click to edit/add: Vital Signs - 24 hr 08/26/24 10:15 Temperature 97.4 F L Pulse Rate [Pulse Oximeter] 751 H Respiratory Rate 18 Blood Pressure [Ri ght Upper Arm] 140/85 H Pulse Oximetry 97 Oxygen Delivery Me thod Room Air Documenting provider has reviewed patient's vital signs: yes Course Course ED Course: Using sterile technique after irrigated out with 1 L of normal saline, with Hibiclens. Sterile prep and drape was done, pre to this I did use some anesthesia 1% lidocaine without epinephrine times 4 mL. Wound is found to be down through the dermis, but not involving any of the deep structures, it was a little bit longer at 3.5 cm. And took a total of 3 simple 4-0 Prolene sutures to close. Patient viewed this and was excellent, estimated blood loss less than 1 mL. No evidence of foreign body. Post neurovascular status excellent, good cap refill no sensory abnormality. Vital Signs Vital signs: Initial Vital Signs Temperature 97.4 F L 08/26/24 10:15 Temperature Source Temporal Artery Scan 08/26/24 10:15 Pulse Rate 751 H 08/26/24 10:15 Respiratory Rate 18 08/26/24 10:15 Blood Pressure 140/85 H 08/26/24 10:15 Blood Pressure Mean 103 08/26/24 10:15 Pulse Oximetry 97 08/26/24 10:15 Oxygen Delivery Method Room Air 08/26/24 10:15 Vital Signs Temperature 97.4 F L 08/26/24 10:15 Pulse Rate 751 H 08/26/24 10:15 Respiratory Rate 18 08/26/24 10:15 Blood Pressure 140/85 H 08/26/24 10:15 Pulse Oximetry 97 08/26/24 10:15 Oxygen Delivery Method Room Air 08/26/24 10:15 Temperature 97.4 F L 08/26/24 10:15 Pulse Rate 751 H 08/26/24 10:15 Respiratory Rate 18 08/26/24 10:15 Blood Pressure 140/85 H 08/26/24 10:15 Pulse Oximetry 97 08/26/24 10:15 Oxygen Delivery Method Room Air 08/26/24 10:15 Medications Administered Medications: Discontinued Medications Generic Name Dose Route Start Last Admin Trade Name Freq PRN Reason Stop Dose Admin Cephalexin HCl 500 mg 08/26/24 10:29 08/26/24 10:46 Cephalexin 500 Mg Capsule PO 08/26/24 10:30 500 mg ONCE ONE Administration Diphtheria/Tetanus/Acell Pertussis 0.5 ml 08/26/24 10:29 08/26/24 11:13 Tetanus/Diphth/Pertussis 0.5 Ml Syringe IM 08/26/24 10:30 0.5 ml .ONCE ONE Administration Lidocaine/Epinephrine/Tetracaine 3 ml 08/26/24 10:29 08/26/24 10:36 Lidocaine/Epinep/Tetracaine 3 Ml Gel..Ml. TOPICAL 08/26/24 10:30 3 ml ONCE ONE Administration Discharge Plan Discharge Clinical Impression: Laceration Patient Disposition: Home, Self-Care Condition: Improved Instructions: Finger Laceration (ED) Additional Instructions: Home rest, for the 1st hopefully for 6-12 hours minimize movement, bacitracin on there, return here if increasing swelling redness or signs of infection, such as pain. Take your antibiotics for the next 7 days, follow-up in 14 days for removal of sutures, Activity Level: Light activity Discharge Diet: Regular Prescriptions: New cephalexin 500 mg capsule 500 mg PO BID Qty: 14 0RF No Action Lactobacillus acidophilus 0.5 mg (100 million cell) Tablet 1,000 mmu cells PO TIDWM Qty: 60 0RF dextroamphetamine-amphetamine [Adderall XR] 10 mg capsule,extended release 24hr 40 mg PO QAM Qty: 120 0RF Follow Up/Referrals: Feliz Russell MD [Primary Care Provider, Internal Medicine] [facility] Inst[facility]
[2024-08-26] MEDS: TETANUS/DIPHTH/PERTUSSIS 0.5 ML SYRINGE IM (11:13)
== END 2024-08-26 11:38 | disposition home or self-care (01) ==
PROVIDERS: Emergency Provider Family Medicine; PCP Internal Medicine
DX: S61.213A Laceration without foreign body of left middle finger without damage to nail, initial encounter (principal); S61.215A Laceration without foreign body of left ring finger without damage to nail, initial encounter; W26.9XXA Contact with unspecified sharp object(s), initial encounter
CPT/HCPCS: 12002; 90471; 90715; 99283; A9270

== ENCOUNTER 2024-11-10 13:30 | Emergency (ER) | payer OTHER, SELFPAY ==
--- OUTSIDE RECORDS SUMMARY | 2024-11-10 13:32 | XMS_ITS | Clinical Summary ---
Author Organization [facility] Address [address] [place] [id number] Care Team Providers Care Barrel Loader Name Role Phone Nestor Duenas MD Primary Care Provider [phone] Source Comments You are receiving this document [...] for each transition of care or referral. 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 Inhaled Oxygen Concentration - - Weight 88.5 kg (195 lb) 06/08/2021 11:54 AM CDT Height 180.3 cm (5' 11) 06/08/2021 11:54 AM CDT Body Mass Index 27.2 06/08/2021 11:54 AM CDT Plan of Treatment Health Maintenance Due Date Last Done Comments Hep C Screening (Preventive Services) 1987 HIV Screening (Preventive Services) 2003 HepB Vaccine (1) 07/01/2006 HPV Vaccine (1 - 3-dose SCDM series) 07/01/2014 Pneumococcal Vaccine (2 of 2 - PCV) 04/10/2018 04/10/2017 Cholesterol 07/01/2022 05/29/2013 Adult Preventive Visit 06/09/2023 06/08/2021 (Comple louise) COVID-19 Vaccine (1 - season) 2023 Influenza Vaccine (#1) 2024 0, 04/10/2017, 04/11/2016, Additional history exists DTaP/Tdap/Td Vaccine (3 - Tdap) 12/04/2024 12/04/2014, 11/24/2010 Zoster/Shingles Vaccine (1 of 2) 07/01/2037 HepA Vaccine Aged Out No longer eligi [...] LDL (IF NEEDED) Routine 05/29/2013 10:07 AM ASSISTANT PROFESSOR OF CHEMISTRY Screening cholesterol level from Last 3 Months or Most Recently Relevant to Health Maintenance Results * (ABNORMAL) Lipid Panel and Direct LDL(If Needed) (05/29/2013 10:07 AM ASSISTANT PROFESSOR OF CHEMISTRY) Cholesterol 203(H) 0 - 200 mg/dL HP CONVERSION Triglycerides 254(H) 0 - 149 mg/dL HP CONVERSION HDL Cholesterol 31(L) >39 mg/dL HP CONVERSION Cholesterol/HDL Ratio Screen 6.5 HP CONVERSION LDL Calculated 121 19 - 130 mg/dL HP CONVERSION Hours Fasting 12.0 HP CONVERSION 05/29/2013 10:0 7 AM ASSISTANT PROFESSOR OF CHEMISTRY 05/29/2013 10:07 AM ASSISTANT PROFESSOR OF CHEMISTRY Narrative HP CONVERSION - 05/29/2013 10:39 AM ASSISTANT PROFESSOR OF CHEMISTRY Performed at [facility], [address] [place] [address] Nelly Gillespie PA-C LAB_1 Final Result HP CONVERSION from Last 3 Months or Most Recently Relevant to Health Maintenance Care Teams Barrel Loader Relationship Specialty Start Date End Date Nestor Duenas MD [address] [place], [place] [id number] PCP - General 08/27/14
[2024-11-10 13:40] VITALS: BP 146/100; PULSE 86; RESP 20; TEMP 36.9; O2SAT 99; BMI 26.3
--- NOTE | 2024-11-10 14:16 | ED_ITS ---
HPI - General Adult General Date Seen: 11/10/24 Chief complaint: GI Bleed Stated complaint: Possible broken right hand Time Seen by Provider: 11/10/24 14:12 History of Present Illness HPI narrative: A 39-year-old male with a history of ADD, tobacco use, presenting to the ER today with 2 concerns. Primarily he is here because he injured his right hand this morning when he fell. His 2nd concern is that he has been noticing blood in his stool that started this morning. He is primarily concerned about his right thumb. 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 He is not sure but he thinks he caught his right thumb against something when he was falling. He is having pain and swelling at base of his thumb and thenar eminence. Also little bit of tingling affecting his index finger and middle finger of his right hand. His wrist feels little bit stiff but is not really painful. Forearm, elbow, upper arm, shoulder, are not injured. No other injuries from the fall save for some trivial scrapes on his left snow and knee. He did not hit his head. His thumb hurts to move. He politely but firmly declines offered pain medications, even Tylenol or ibuprofen. His 2nd concern is raised by his . He does have a history of occasional blood in his stool but only very small amounts. notes that this weekend he was just feeling sick with a stomach ache and low energy. No nausea, no vomiting, no fever. Normal bowel movements yesterday. This morning he did have a bowel movement that was soft and semi formed and notable for a larger than normal amount of bright red blood on the toilet paper. Since then he has had 2 further bowel movements in each were semi formed and eat with progressively more significant amounts of blood notable in the toilet bowl and on the toilet paper. He is not having any rectal pain. No fever chills. No nausea vomiting. His stomach ache is actually better today than it was yesterday but is not completely back to normal. Appetite is normal this morning. He has no recent travel or camping. No known suspicious food intake. No recent antibiotics. He has no history of Crohn's or inflammatory bowel disease. Related Data Previous Rx's ?Medication ?Instructions ?Recorded Lactobacillus acidophilus 0.5 mg 1,000 mmu cells PO TI DWM #60 tabs 11/06/23 (100 million cell) tablet cephalexin 500 mg capsule 500 mg PO BID #14 caps 08/26 dextroamphetamine-amphetamine ER 40 mg (4 x 10 mg) PO QAM #120 caps 11/01/24 10 mg 24hr capsule,extend release (Adderall XR) Allergies Allergy/AdvReac Type Severity Reaction Status Date / Time No Known Allergies Allergy Unknown Verified 11/10/24 13:38 [facility] Medical History (Updated 11/10/24 @ 16:29 by Rigoberto Payton MD) Cellulitis ?L03.90 - Cellulitis, unspecified (ICD-10) Surgical History History of dental surgery ?Z92.89 - Personal history of other medical treatment (ICD-10) Hx of vasectomy (07/04/21) ?Z98.52 - Vasectomy status (ICD-10) Social History What is your current living situation?: I presently have a place to live Problems where you live: no known problems Problems where you live details: N/A In the past 12 months, utilities in danger of being shut off: no In past 12 months, lack of transportation kept you from medical appts, meetings, work, or getting things needed for daily living: no In the past 12 mos, have been you worried that your food would run out before you had money to buy more?: never true In the past 12 mos, the food you bought just didn't last and you didn't have money to buy more?: never true Highest level of school completed/degree received: high school graduate Smoking Status: Current every day smoker What tobacco products do you use: cigarettes Smoking packs per day: 1 Smoking cigarettes per day: 20.0 Years smoked: 15 Smoking pack-years: 15.00 Do you use any of these nicotine containing products: None How often do you have a drink containing alcohol: 2-4 times a month Alcohol type: beer How many standard drinks containing alcohol do you have on a typical day: 1 or 2 How often do you have six or more drinks on one occasion: Never AUDIT-C Alcohol total score: 2 Non-prescribed substance use: marijuana (any form) Caffeine: Yes How often does anyone, including family, friends and others, physically hurt you : never How often does anyone, including family, friends and others, insult or talk down to you: never How often does anyone, including family, friends and others, threaten you with harm: never How often does anyone, including family, friends and others, scream or curse at you: never service: No Exam Narrative: Exam Narrative: Constitutional: Appears well-developed and well-nourished. Alert. Conversant. Non toxic. HENT: Head: Atraumatic. Nose: Nose normal. Mouth/Throat: Oral mucosa is clear and moist. no trismus. Pharynx normal. Tonsils symmetric. No tonsillar enlargement, erythema, or exudate. Eyes: Conjunctivae normal. EOM normal. Pupils equal, round, and reactive to light. No scleral icterus. Neck: Normal range of motion. Neck supple. No tracheal deviation present. Cardiovascular: Normal rate, regular rhythm. No gallop. No friction rub. No murmur heard. Symmetric radial artery pulses Pulmonary/Chest: Effort normal. No stridor. No respiratory distress. No wheezes. No rales. No rhonchi . No tenderness. Abdominal: Soft. Bowel sounds normal. No distension. No mass. No tenderness. No rebound. No guarding. Rectal: Normal gluteal cleft and external rectum. Small amount of mucus is present. No external hemorrhoids or fissure. Digital rectal exam deferred. Musculoskeletal: RUE: Clavicle, shoulder, humerus, elbow, forearm are nontender. Normal inspection of the wrist. He is tender over the thenar eminence and base of the thumb on the right hand with swelling there. Limited flexion and extension range of motion of the thumb. Normal distal thumb cap refill. No tenderness over the body of the hand. No tenderness over the 2nd-5th fingers. He does complain of subjective paresthesias involving the index finger and ring for on the right hand. However does have intact objective sensory function when compared to the left hand. LUE: Normal range of motion. No tenderness. No deformity RLE: Normal range of motion. No edema. No tenderness. No deformity LLE: Normal range of motion. No edema. No tenderness. No deformity Neurological: Alert and oriented to person, place, and time. Normal strength. CN II-VII intact. No sensory deficit. GCS eye subscore is 4. GCS verbal subscore is 5. GCS motor subscore is 6. Normal coordination Skin: Skin is warm and dry. No rash noted. No pallor. Normal capillary refill. Psychiatric: Normal mood. Normal affect. Const: Vital Signs, click to edit/add: Vital Signs - 24 hr 11/10/24 13:40 Temperature 98.4 F Pulse Rate [Pulse Oximeter] 86 Respiratory Rate 20 Blood Pressure [Ri ght Upper Arm] 146/100 H Pulse Oximetry 99 Oxygen Delivery Me thod Room Air Course Vital Signs Vital signs: Initial Vital Signs Temperature 98.4 F 11/10/24 13:40 Temperature Source Temporal Artery Scan 11/10/24 13:40 Pulse Rate 86 11/10/24 13:40 Respiratory Rate 20 11/10/24 13:40 Blood Pressure 146/100 H 11/10/24 13:40 Blood Pressure Mean 115 H 11/10/24 13:40 Pulse Oximetry 99 11/10/24 13:40 Oxygen Delivery Method Room Air 11/10/24 13:40 Vital Signs Temperature 98.4 F 11/10/24 13:40 Pulse Rate 86 11/10/24 13:40 Respiratory Rate 20 11/10/24 13:40 Blood Pressure 146/100 H 11/10/24 13:40 Pulse Oximetry 99 11/10/24 13:40 Oxygen Delivery Method Room Air 11/10/24 13:40 Temperature 98.4 F 11/10/24 13:40 Pulse Rate 86 11/10/24 13:40 Respiratory Rate 20 11/10/24 13:40 Blood Pressure 146/100 H 11/10/24 13:40 Pulse Oximetry 99 11/10/24 13:40 Oxygen Delivery Method Room Air 11/10/24 13:40 Medical Decision Making MDM Narrative Medical decision making narrative: Pleasant 39-year-old gentleman accompanied the ER today by his with 2 separate concerns. 1. 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 He has pain and discomfort at the thenar eminence and base of the thumb. He is neurologically intact in thumb but does have some subjective paresthesias in the ulnar nerve distribution on the right hand. No signs of any distal ischemia. X-rays of lumbar actually negative. At this point it is certainly possible that he could have a thumb sprain or a contusion. Pain does not really localize to the MCP joint to suggest a gamekeeper's thumb. Differential would also include a potential occult scaphoid injury. Will immobilize him in a thumb spica splint and recommend strict immobilization until either all pain and swelling or gone or if not improved within 3-4 days, he can recheck with Orthopedics or PCP. He understands the risk for an occult scaphoid fracture and the potential for nonunion if it is not properly manage. He understands the need for follow-up. He is declining any offered pain medications here in the ER or at home. 2. He has also noted 3 episodes of small volume bright red blood per rectum this morning. He did have a few clots on the toilet paper after his 3rd BM. It sounds like he does have occasional bright red blood from time to time but never 3 episodes and 1 morning before. He has also had a few days of stomach ache in generalized malaise and his stools this morning were not formed but were rather soft brown stool with blood around them. Differential here would include external hemorrhoid or fissure but these are not seen trouble exam. Differential would also include internal causes of lower GI bleeding such as internal hemorrhoid. Advised that if bleeding is not resolved, he will need to have follow-up with PCP to consider anoscopy or sigmoidoscopy for further evaluation. Differential would also include infection with the diarrhea. He has not had any fever or any known specific spacious food intake. No recent antibiotics. However with 3 soft bloody stools this morning, consider infectious causes. He is not having any significant abdominal pain to raise concern for diverticulitis, colitis, abscess. At this point I do not think he needs CT imaging. He is declining offered lab testing to look at white count and hemoglobin. We will send stool cultures and C diff to look for potential bacterial enteritis In terms of labs, we did discuss the labs but patient is declining. At this point he is hemodynamically stable and based on his description of the bloody stool this does not seem like a hemodynamically significant lower GI bleed. I do not think he needs to be admitted for hemodynamic or hemoglobin monitoring. However precautions for return to the ER reviewed. Imaging Data XR right thumb: Attestation: I have reviewed the pertinent imaging results. My impression: No acute fracture or dislocation Radiologist's impression: Final Report: Indication: Right thumb injury. Technique: Three views. Comparison: None. Findings/Impression: Bones: Alignment is normal. No fractures or bone lesions. Joint spaces: Unremarkable. Soft tissues: Unremarkable. Discharge Plan Discharge Clinical Impression: Injury of right thumb, Hematochezia Patient Disposition: Home, Self-Care Condition: Stable Instructions: Rectal Bleeding (ED), Wrist Sprain (ED) Additional Instructions: 1. Right thumb injury. As we discussed, your x-rays look good today. We do not see any signs of broken bones. However I am concerned that you may have a fracture that is hidden on today's x-rays. Please wear the thumb brace to protect her thumb for the next several days. If your thumb is completely healed, you can take the brace off and go back to normal activity. However if your film is still painful in 3-4 days, please recheck with the [facility] (or come back to the ER or your regular doctor). To schedule an appointment with the orthopedic clinic you can call [phone]. 2. Blood in stool. At this point the cause of her bloody stool is not clear. Please bring a stool culture back to the ER so we can run test to look for possible infections. If you notice increasing blood in your stool, or if you develop other symptoms such as fever, abdominal pain, lightheadedness or weakness, or increasing blood in the stool, please return to the ER right away. If the bleeding is not completely resolved within 2-3 days, please recheck with your doctor Prescriptions: No Action Lactobacillus acidophilus 0.5 mg (100 million cell) Tablet 1,000 mmu cells PO TIDWM Qty: 60 0RF cephalexin 500 mg capsule 500 mg PO BID Qty: 14 0RF dextroamphetamine-amphetamine [Adderall XR] 10 mg capsule,extended release 24hr 40 mg PO QAM Qty: 120 0RF Follow Up/Referrals: Feliz Russell MD [Primary Care Provider, Internal Medicine] Stand Alone Forms: [facility] Info Instructions
--- NOTE | 2024-11-10 14:45 | XR_ITS ---
Patient: EDWIN MURPHYFERING Facility:?[facility] Patient ID:?[id number] Site Patient ID:?[id number]. Site :?[id number] Study:?XRay-Extremity Right THUMB 3 VIEWS-11/10/2024 3:14:36 PM Ordering Physician:?Fito Franklin Final Report: Indication: Right thumb injury. Technique: Three views. Comparison: None. Findings/Impression: Bones: Alignment is normal. No fractures or bone lesions. Joint spaces: Unremarkable. Soft tissues: Unremarkable. Dictated by Lidia Mora MD @ 11/10/2024 3:16:12 PM (Electronic Signature)
== END 2024-11-10 16:44 | disposition home or self-care (01) ==
PROVIDERS: Emergency Provider Emergency Medicine; PCP Internal Medicine
DX: S69.91XA Unspecified injury of right wrist, hand and finger(s), initial encounter (principal); K92.1 Melena; V85.4XXA Person injured while boarding or alighting from special construction vehicle, initial encounter; Y99.0 Civilian activity done for income or pay
CPT/HCPCS: 73140; 87045; 87046; 87427; 87493; 99283; 99284

== ENCOUNTER 2024-11-12 15:25 | Outpatient (CLI) | payer OTHER, SELFPAY | END 2024-11-12 15:26 | disposition home or self-care (01) | PROVIDERS: PCP Internal Medicine; Visit Provider Internal Medicine | DX: K92.1 Melena (principal) | CPT/HCPCS: 80053; 85610; 85730 ==

== ENCOUNTER 2024-11-18 07:32 | Outpatient (CLI) | payer OTHER, SELFPAY ==
--- NOTE | 2024-11-18 08:00 | CRLHL7_ITS ---
For Patients: As a result of the Century Cures Act, medical imaging exams and procedure reports are released immediately into your electronic medical record. You may view this report before your referring provider. If you have questions, please contact your health care provider. Indication: MELENA, UPPER STOMACH PAIN Technique: CT Abdomen/Pelvis 88CC ISOVUE 370 intravenous contrast AND WATER PREP Please note that all CT scans at this facility use dose modulation, iterative reconstruction, and/or weight-based dosing when appropriate to reduce radiation dose to as low as reasonably achievable. Comparison: None Findings: Mild dependent atelectasis in both lung bases. No pleural effusion. Focal fat deposition incidentally noted within the liver adjacent to the falciform ligament. Gallbladder is normal. Normal spleen. Pancreas normal. Normal adrenal glands and kidneys. Normal bladder. No pelvic mass. No bowel obstruction or free air. No free fluid or adenopathy. Normal appendix. Degenerative disc disease L5-S1 with disc space narrowing and spurring along with discogenic sclerosis. Impression: No acute findings. No evidence of metastatic disease. Please note that all CT scans at this facility use dose modulation, iterative reconstruction, and/or weight-based dosing when appropriate to reduce radiation dose to as low as reasonably achievable. Dictated by Shay Temple MD @ 11/18/2024 9:01:01 AM (Electronically Signed)
== END 2024-11-18 07:33 | disposition home or self-care (01) ==
LOC: CT 07:33
PROVIDERS: PCP Internal Medicine; Visit Provider Internal Medicine
DX: K92.1 Melena (principal); R10.9 Unspecified abdominal pain
CPT/HCPCS: 74177; Q9967